=== PATIENT | female | born 1930 | race Caucasian/White ===

== ENCOUNTER 2017-10-07 11:58 | Inpatient (IN) | payer MEDICARE, OTHER ==
[~2017-10-07] VITALS: Ht 152.4 cm; Wt 65.5 kg
[~2017-10-07 11:58] MED LIST: AMLO10TA2 PO; CARV12.52 PO; DABI150C PO; HYDR25TA9 PO; LISI-334 PO; POTA10TA12 PO
[2017-10-07 13:24] LABS: BASO # 0.1 x10^3/uL (0.0-0.2); BASO % 1 % (0-3); EOS # 0.2 x10^3/uL (0.0-0.7); EOS % 1 % (0-3); HEMATOCRIT 44.3 % (36.0-47.0); HEMOGLOBIN 14.5 g/dL (12.0-15.5); LYMPH # 1.7 x10^3/uL (1.0-4.8); LYMPH % 13 % (24-48); MEAN CORPUSCULAR HEMOGLOBIN 31 pg (25-35); MEAN CORPUSCULAR HGB CONC 33 g/dL (31-37); MEAN CORPUSCULAR VOLUME 94 fL (79-100); MONO # 1.1 x10^3/uL (0.0-1.1); MONO % 9 % (0-9); NEUT # 9.3 x10^3uL (1.8-7.7); NEUT % 76 % (31-73); PLATELET COUNT 326 x10^3/uL (140-400); RED BLOOD COUNT 4.73 x10^6/uL (3.50-5.40); RED CELL DISTRIBUTION WIDTH 13.4 % (11.5-14.5); WHITE BLOOD COUNT 12.3 x10^3/uL (4.0-11.0)
[2017-10-07 13:26] LABS: ALBUMIN 3.4 g/dL (3.4-5.0); ALBUMIN/GLOBULIN RATIO 0.8 (1.0-1.7); CREATININE 2.4 mg/dL (0.6-1.0); GFR 19.2; TOTAL BILIRUBIN 0.5 mg/dL (0.2-1.0); TOTAL PROTEIN 7.7 g/dL (6.4-8.2)
[2017-10-07 13:30] LABS: POTASSIUM 7.5 mmol/L (3.5-5.1)
[2017-10-07] MEDS ORDERED: INSULIN REGULAR 100 UNIT/ML 3ML VIAL. IV ONE (13:45)
[2017-10-07] MEDS ORDERED: ALBUTEROL SULFATE 2.5 MG/3 ML NEBU. CONT NEB ONE (13:45)
[2017-10-07] MEDS ORDERED: CALCIUM GLUCONATE 1,000 MG/10 ML VIAL. IVP ONE ×2 (13:45→22:30)
[2017-10-07] MEDS ORDERED: DEXTROSE 50% 25 GM / 50ML DISP.SYRIN. IV ONE (13:45)
[2017-10-07] MEDS ORDERED: IV NORMAL SALINE 1000ML BAG 1,000 ML IV ONE (14:00)
[2017-10-07] MEDS ORDERED: IV NORMAL SALINE 1000ML BAG 1,000 ML IV SCH (14:10)
[2017-10-07] MEDS ORDERED: SODIUM BICARB ADULT 8.4% 50 MEQ/50 ML DISP.SYRIN. IV ONE (14:15)
[2017-10-07] MEDS ORDERED: ONDANSETRON PF 4 MG/2 ML VIAL. ONE (14:23)
[2017-10-07] MEDS ORDERED: ONDANSETRON PF 4 MG/2 ML VIAL. IV ONE (14:30)
--- NOTE | 2017-10-07 14:52 | EKG ---
[facility] [address] [place] [address] Test Date: 2017-10-07 Test Time: 13:41:34 Pat Name: MIKY BELTRAN Department: Room: 248 1 Gender: F Equipment Detailer: : 1930 Requested By: LATRICE SARAVIA Order Number: [id number] Reading MD: Mack Martinez MD Measurements Intervals Gage Rate: 90 P: CA: QRS: -25 QRSD: 94 T: 48 QT: 340 QTc: 419 Interpretive Statements ATRIAL FIBRILLATION NON-SPECIFIC ST/T CHANGES Electronically Signed On 10-07-2017 16:56:48 CDT by Mack Martinez MD
--- NOTE | 2017-10-07 15:47 | PHYS DOC ---
Past Medical History Past Medical History: A-Fib, Anxiety, Hypertension, Stroke, UTI Past Surgical History: , Hysterectomy Additional Past Surgical Histo: COLOSTOMY, COLON RESECTION. Alcohol Use: Rarely Drug Use: None Adult General Chief Complaint Chief Complaint: OTHER COMPLAINTS HPI HPI Patient is a 87 year old [f__sex] who presents with [] Review of Systems Review of Systems Constitutional: Denies fever or chills [] Eyes: Denies change in visual acuity, redness, or eye pain [] HENT: Denies nasal congestion or sore throat [] Respiratory: Denies cough or shortness of breath [] Cardiovascular: No additional information not addressed in HPI [] GI: Denies abdominal pain, nausea, vomiting, bloody stools or diarrhea [] : Denies dysuria or hematuria [] Musculoskeletal: Denies back pain or joint pain [] Integument: Denies rash or skin lesions [] Neurologic: Denies headache, focal weakness or sensory changes [] Endocrine: Denies polyuria or polydipsia [] All other systems were reviewed and found to be within normal limits, except as documented in this note. Current Medications Current Medications Current Medications Medications (Trade) Dose Ordered Sig/Heather Start Time Stop Time Status Last Admin Dose Admin Albuterol Sulfate (Ventolin Neb Soln) 10 mg 1X ONCE 10/07/17 13:45 10/07/17 13:47 DC 10/07/17 15:05 10 MG Calcium Gluconate (Calcium Gluconate) 1,000 mg 1X ONCE 10/07/17 13:45 10/07/17 13:47 DC 10/07/17 14:13 1,000 MG Dextrose (Dextrose 50%-Water Syringe) 25 gm 1X ONCE 10/07/17 13:45 10/07/17 13:47 DC 10/07/17 14:19 25 GM Insulin Human Regular (HumuLIN R VIAL) 10 unit 1X ONCE 10/07/17 13:45 10/07/17 13:47 DC 10/07/17 14:25 10 UNIT Sodium Chloride 1,000 ml @ 1,000 mls/hr 1X ONCE 10/07/17 14:00 10/07/17 14:59 DC 10/07/17 14:09 1,000 MLS/HR Allergies Allergies Allergies Coded Allergies Type Severity Reaction Last Updated Verified Penicillins Allergy Severe Hives 09/14/17 Yes acetaminophen Allergy Intermediate 09/14/17 Yes ibuprofen Allergy Intermediate 09/14/17 Yes ampicillin Allergy Mild Diarrhea 09/21/17 Yes azithromycin Allergy Mild Diarrhea 09/21/17 Yes cetirizine Allergy Mild RASH 10/07/17 Yes I S O L A T I O N *CONTACT* Allergy Unknown 09/14/17 Yes budesonide Adverse Reaction Severe 09/21/17 Yes dabigatran etexilate Adverse Reaction Severe 09/20/17 Yes Tetracyclines Adverse Reaction Intermediate Nausea and Vomiting 10/07/17 Yes albuterol Adverse Reaction Intermediate Nausea and Vomiting 10/07/17 Yes codeine Adverse Reaction Intermediate 09/19/17 Yes diphenhydramine Adverse Reaction Intermediate URINARY RETENTION 09/21/17 Yes erythromycin base Adverse Reaction Intermediate 10/07/17 Yes tetracycline Adverse Reaction Intermediate Diarrhea 09/20/17 Yes Physical Exam Physical Exam Constitutional: Well developed, well nourished, no acute distress, non-toxic appearance. [] HENT: Normocephalic, atraumatic, bilateral external ears normal, oropharynx moist, no oral exudates, nose normal. [] Eyes: PERRLA, EOMI, conjunctiva normal, no discharge. [] Neck: Normal range of motion, no tenderness, supple, no stridor. [] Cardiovascular:Heart rate regular rhythm, no murmur [] Lungs & Thorax: Bilateral breath sounds clear to auscultation [] Abdomen: Bowel sounds normal, soft, no tenderness, no masses, no pulsatile masses. [] Skin: Warm, dry, no erythema, no rash. [] Back: No tenderness, no CVA tenderness. [] Extremities: No tenderness, no cyanosis, no clubbing, ROM intact, no edema. [] Neurologic: Alert and oriented X 3, normal motor function, normal sensory function, no focal deficits noted. [] Psychologic: Affect normal, judgement normal, mood normal. [] Current Patient Data Vital Signs Vital Signs Date Time Temp Pulse Resp B/P (MAP) Pulse Ox O2 Delivery O2 Flow Rate FiO2 10/07/17 13:56 84 24 137/91 (106) 97 Room Air 10/07/17 12:06 97.6 97.6 Lab Values Laboratory Tests Test 10/07/17 12:38 White Blood Count 12.3 x10^3/uL (4.0-11.0) H Red Blood Count 4.73 x10^6/uL (3.50-5.40) Hemoglobin 14.5 g/dL (12.0-15.5) Hematocrit 44.3 % (36.0-47.0) Mean Corpuscular Volume 94 fL (79-100) Mean Corpuscular Hemoglobin 31 pg (25-35) Mean Corpuscular Hemoglobin Concent 33 g/dL (31-37) Red Cell Distribution Width 13.4 % (11.5-14.5) Platelet Count 326 x10^3/uL (140-400) Neutrophils (%) (Auto) 76 % (31-73) H Lymphocytes (%) (Auto) 13 % (24-48) L Monocytes (%) (Auto) 9 % (0-9) Eosinophils (%) (Auto) 1 % (0-3) Basophils (%) (Auto) 1 % (0-3) Neutrophils # (Auto) 9.3 x10^3uL (1.8-7.7) H Lymphocytes # (Auto) 1.7 x10^3/uL (1.0-4.8) Monocytes # (Auto) 1.1 x10^3/uL (0.0-1.1) Eosinophils # (Auto) 0.2 x10^3/uL (0.0-0.7) Basophils # (Auto) 0.1 x10^3/uL (0.0-0.2) Sodium Level 129 mmol/L (136-145) L Potassium Level 7.5 mmol/L (3.5-5.1) *H Chloride Level 98 mmol/L (98-107) Carbon Dioxide Level 27 mmol/L (21-32) Anion Gap 4 (6-14) L Blood Urea Nitrogen 31 mg/dL (7-20) H Creatinine 2.4 mg/dL (0.6-1.0) H Estimated GFR (Cockcroft-Gault) 19.2 BUN/Creatinine Ratio 13 (6-20) Glucose Level 132 mg/dL (70-99) H Calcium Level 10.0 mg/dL (8.5-10.1) Total Bilirubin 0.5 mg/dL (0.2-1.0) Aspartate Amino Transferase (AST) 25 U/L (15-37) Alanine Aminotransferase (ALT) 26 U/L (14-59) Alkaline Phosphatase 102 U/L (46-116) Total Protein 7.7 g/dL (6.4-8.2) Albumin 3.4 g/dL (3.4-5.0) Albumin/Globulin Ratio 0.8 (1.0-1.7) L Laboratory Tests 10/07/17 12:38 Laboratory Tests 10/07/17 12:38 EKG EKG 1348- atrial fibrilation, no STEMI read by Dr. Alberts[] Radiology/Procedures Radiology/Procedures [] Course & Med Decision Making Course & Med Decision Making Pertinent Labs and Imaging studies reviewed. (See chart for details) [] Dragon Disclaimer Dragon Disclaimer This electronic medical record was generated, in whole or in part, using a voice recognition dictation system. Departure Departure Impression: Primary Impression: Hyperkalemia Additional Impressions: Stoma dermatitis Surgical wound dehiscence Disposition: ADMITTED INPATIENT Admitting Physician: Jb Evans Condition: STABLE Referrals: SHABNAM ORLANDO MD (PCP) Problem Qualifiers Additional Impressions: Surgical wound dehiscence Encounter type: initial encounter Qualified Codes: T81.31XA - Disruption of external operation (surgical) wound, not elsewhere classified, initial encounter LATRICE SARAVIA [employer] Oct 07, 2017 15:47
[2017-10-07 19:19] VITALS: BP 130/66
[2017-10-07 21:33] LABS: BASO # 0.1 x10^3/uL (0.0-0.2); BASO % 1 % (0-3); EOS # 0.2 x10^3/uL (0.0-0.7); EOS % 1 % (0-3); HEMATOCRIT 39.6 % (36.0-47.0); HEMOGLOBIN 13.2 g/dL (12.0-15.5); LYMPH # 1.4 x10^3/uL (1.0-4.8); LYMPH % 12 % (24-48); MEAN CORPUSCULAR HEMOGLOBIN 31 pg (25-35); MEAN CORPUSCULAR HGB CONC 33 g/dL (31-37); MEAN CORPUSCULAR VOLUME 92 fL (79-100); MONO # 1.3 x10^3/uL (0.0-1.1); MONO % 11 % (0-9); NEUT # 8.5 x10^3uL (1.8-7.7); NEUT % 75 % (31-73); PLATELET COUNT 269 x10^3/uL (140-400); RED BLOOD COUNT 4.32 x10^6/uL (3.50-5.40); RED CELL DISTRIBUTION WIDTH 13.5 % (11.5-14.5); WHITE BLOOD COUNT 11.3 x10^3/uL (4.0-11.0)
[2017-10-07 21:48] LABS: ALBUMIN 2.8 g/dL (3.4-5.0); ALBUMIN/GLOBULIN RATIO 0.8 (1.0-1.7); CREATININE 2.1 mg/dL (0.6-1.0); GFR 22.4; TOTAL BILIRUBIN 0.5 mg/dL (0.2-1.0); TOTAL PROTEIN 6.4 g/dL (6.4-8.2)
[2017-10-07 21:54] LABS: POTASSIUM 6.6 mmol/L (3.5-5.1)
[2017-10-07 22:31] VITALS: BP 125/47
[2017-10-07] MEDS: SODIUM BICARBONATE VIAL 100 MEQ in IV DEXTROSE 5% 1,000 ML IV SCH (22:56)
[2017-10-08 03:02] VITALS: BP 110/50
[2017-10-08] MEDS: fentaNYL PF VIAL 100 MCG/2 ML VIAL IV PRN (03:53)
[2017-10-08 07:00] VITALS: BP 92/69
[2017-10-08 07:13] LABS: BASO # 0.1 x10^3/uL (0.0-0.2); BASO % 1 % (0-3); EOS # 0.3 x10^3/uL (0.0-0.7); EOS % 3 % (0-3); HEMATOCRIT 37.3 % (36.0-47.0); HEMOGLOBIN 12.5 g/dL (12.0-15.5); LYMPH # 1.4 x10^3/uL (1.0-4.8); LYMPH % 16 % (24-48); MEAN CORPUSCULAR HEMOGLOBIN 31 pg (25-35); MEAN CORPUSCULAR HGB CONC 34 g/dL (31-37); MEAN CORPUSCULAR VOLUME 92 fL (79-100); MONO # 0.9 x10^3/uL (0.0-1.1); MONO % 11 % (0-9); NEUT # 5.8 x10^3uL (1.8-7.7); NEUT % 69 % (31-73); PLATELET COUNT 230 x10^3/uL (140-400); RED BLOOD COUNT 4.05 x10^6/uL (3.50-5.40); RED CELL DISTRIBUTION WIDTH 13.3 % (11.5-14.5); WHITE BLOOD COUNT 8.5 x10^3/uL (4.0-11.0)
[2017-10-08 07:30] LABS: ALBUMIN 2.5 g/dL (3.4-5.0); ALBUMIN/GLOBULIN RATIO 0.8 (1.0-1.7); CREATININE 2.2 mg/dL (0.6-1.0); GFR 21.2; POTASSIUM 5.9 mmol/L (3.5-5.1); TOTAL BILIRUBIN 0.5 mg/dL (0.2-1.0); TOTAL PROTEIN 5.8 g/dL (6.4-8.2)
--- NOTE | 2017-10-08 08:28 | PDOC2 ---
TIANAERENDIRA Natanael [employer] 10/08/17 0828: CONSULT Date of Consult Date of Consult DATE: 10/08/17 TIME: 08:23 Reason for Consult Reason for Consult: wound Referring Physician Referring Physician: ER Identification/Chief Complaint Chief Complaint ostomy issues Source Source: Chart review History of Present Illness Reason for Visit: Having trouble with ostomy seal and skin reaction Nursing concerned for wound dehiscence to incision Underwent subtotal colectomy with end ileostomy, meckels diverticulectomy on 09/[address] Neal Past Medical History Cardiovascular: AFIB, HTN, Hyperlipidemia CENTRAL NERVOUS SYSTEM: CVA Musculoskeletal: Osteoarthritis Past Surgical History Past Surgical History: Cholecystectomy, Cataract Removal, , Hysterectomy, Other Family History Family History: Heart Disease, Stroke Social History No ALCOHOL: none Drugs: None Lives: with Family Current Problem List Problem List Problems Medical Problems: (1) Hyperkalemia Status: Acute (2) Stoma dermatitis Status: Acute (3) Surgical wound dehiscence Status: Acute Current Medications Current Medications Current Medications Calcium Gluconate (Calcium Gluconate) 1,000 mg 1X ONCE IVP Last administered on 10/07/17at 14:13; Start 10/07/17 at 13:45; Stop 10/07/17 at 13:47; Status DC Insulin Human Regular (HumuLIN R VIAL) 10 unit 1X ONCE IV Last administered on 10/07/17at 14:25; Start 10/07/17 at 13:45; Stop 10/07/17 at 13:47; Status DC Dextrose (Dextrose 50%-Water Syringe) 25 gm 1X ONCE IV Last administered on at 14:19; Start 10/07/17 at 13:45; Stop 10/07/17 at 13:47; Status DC Albuterol Sulfate (Ventolin Neb Soln) 10 mg 1X ONCE CONT NEB Last administered on 10/07/17at 15:05; Start 10/07/17 at 13:45; Stop 10/07/17 at 13:47 ; Status DC Sodium Chloride 1,000 ml @ 1,000 mls/hr 1X ONCE IV Last administered on at 14:09; Start 10/07/17 at 14:00; Stop 10/07/17 at 14:59; Status DC Sodium Bicarbonate (Sodium Bicarb Adult 8.4% Syr) 50 meq 1X ONCE IV Last administered on 10/07/17at 14:32; Start 10/07/17 at 14:15; Stop 10/07/17 at 14:16 ; Status DC Sodium Chloride 1,000 ml @ 75 mls/hr [id number] IV Last administered on at 18:28; Start 10/07/17 at 14:10; Stop 10/07/17 at 22:52; Status DC Ondansetron HCl (Zofran) 4 mg STK-MED ONCE .ROUTE ; Start 10/07/17 at 14:23; Stop 10/07/17 at 14:24; Status DC Ondansetron HCl (Zofran) 4 mg 1X ONCE IV Last administered on 10/07/17at 14:27 ; Start 10/07/17 at 14:30; Stop 10/07/17 at 14:31; Status DC Sodium Bicarbonate 100 meq/Dextrose 1,100 ml @ 75 mls/hr [id number] IV Last administered on 10/07/17at 22:56; Start 10/07/17 at 22:30 Calcium Gluconate (Calcium Gluconate) 1,000 mg 1X ONCE IVP Last administered on 10/07/17at 22:56; Start 10/07/17 at 22:30; Stop 10/07/17 at 22:31; Status DC Fentanyl Citrate (Fentanyl 2ml Vial) 50 mcg PRN Q3HRS PRN IV PAIN Last administered on 10/08/17at 03:53; Start 10/08/17 at 03:45 Active Scripts Active Reported Potassium Chloride 10 Meq Tab.sr.24h 10 Meq PO DAILY Lisinopril 20 Mg Tablet 20 Mg PO BIDBFRMEAL PRN Hydrochlorothiazide Tablet (Hydrochlorothiazide) 25 Mg Tablet 25 Mg PO DAILY Carvedilol 12.5 Mg Tablet 12.5 Mg PO BID Amlodipine Besylate 10 Mg Tablet 10 Mg PO DAILY Allergies Allergies: Coded Allergies: Penicillins (Verified Allergy, Severe, Hives, 09/14/17) acetaminophen (Verified Allergy, Intermediate, 09/14/17) WHEN PT TOOK MED, HAD A FEELING THAT SOMETHING WAS ON SKIN BUT FEELING SUBSIDED AFTER A SHORT PERIOD OF TIME. PT THEN SEEMED TO TOLERATE MED OK. ibuprofen (Verified Allergy, Intermediate, 09/14/17) ampicillin (Verified Allergy, Mild, Diarrhea, 09/21/17) azithromycin (Verified Allergy, Mild, Diarrhea, 09/21/17) cetirizine (Verified Allergy, Mild, RASH, 10/07/17) I S O L A T I O N *CONTACT* (Verified Allergy, Unknown, 09/14/17) mrsa budesonide (Verified Adverse Reaction, Severe, 09/21/17) cannot urinate for days dabigatran etexilate (Verified Adverse Reaction, Severe, 09/20/17) severe bleeding requiring transfusion Tetracyclines (Verified Adverse Reaction, Intermediate, Nausea and Vomiting, 10/07/17) albuterol (Verified Adverse Reaction, Intermediate, Nausea and Vomiting, ) codeine (Verified Adverse Reaction, Intermediate, 09/19/17) GI issues, nausea and vomiting diphenhydramine (Verified Adverse Reaction, Intermediate, URINARY RETENTION, 09/21/17) urinary retention erythromycin base (Verified Adverse Reaction, Intermediate, 10/07/17) pt states, "can't pee" tetracycline (Verified Adverse Reaction, Intermediate, Diarrhea, 09/20/17) ROS General: No: Chills, Other (fevers) PSYCHOLOGICAL ROS: No: Anxiety, Depression Hematological and Lymphatic: No: Bleeding Problems, Blood Clots Gastrointestinal: Yes Abdominal Pain; No Nausea Skin: Yes Other (see hpi) Physical Exam General: Cooperative, No acute distress HEENT: PERRLA, Mucous membr. moist/pink Lungs: Clear to auscultation, Normal air movement Heart: Regular rate, Normal S1, Normal S2 Abdomen: Soft, Other (skin with erythema to ostomy area, currently good seal, stoma pink, incision healing(open area to bottom of incision is from old annette drain)) Extremities: No cyanosis, Normal pulses MUSCULOSKELETAL: No deformity, No swelling Vitals VITALS Vital Signs Date Time Temp Pulse Resp B/P (MAP) Pulse Ox O2 Delivery O2 Flow Rate FiO2 10/08/17 04:20 16 Room Air 10/08/17 03:02 98.2 76 110/50 (70) 95 98.2 Labs Labs Laboratory Tests Test 10/07/17 12:38 10/07/17 21:15 10/08/17 06:50 White Blood Count 12.3 x10^3/uL (4.0-11.0) 11.3 x10^3/uL (4.0-11.0) 8.5 x10^3/uL (4.0-11.0) Red Blood Count 4.73 x10^6/uL (3.50-5.40) 4.32 x10^6/uL (3.50-5.40) 4.05 x10^6/uL (3.50-5.40) Hemoglobin 14.5 g/dL (12.0-15.5) 13.2 g/dL (12.0-15.5) 12.5 g/dL (12.0-15.5) Hematocrit 44.3 % (36.0-47.0) 39.6 % (36.0-47.0) 37.3 % (36.0-47.0) Mean Corpuscular Volume 94 fL (79-100) 92 fL (79-100) 92 fL (79-100) Mean Corpuscular Hemoglobin 31 pg (25-35) 31 pg (25-35) 31 pg (25-35) Mean Corpuscular Hemoglobin Concent 33 g/dL (31-37) 33 g/dL (31-37) 34 g/dL (31-37) Red Cell Distribution Width 13.4 % (11.5-14.5) 13.5 % (11.5-14.5) 13.3 % (11.5-14.5) Platelet Count 326 x10^3/uL (140-400) 269 x10^3/uL (140-400) 230 x10^3/uL (140-400) Neutrophils (%) (Auto) 76 % (31-73) 75 % (31-73) 69 % (31-73) Lymphocytes (%) (Auto) 13 % (24-48) 12 % (24-48) 16 % (24-48) Monocytes (%) (Auto) 9 % (0-9) 11 % (0-9) 11 % (0-9) Eosinophils (%) (Auto) 1 % (0-3) 1 % (0-3) 3 % (0-3) Basophils (%) (Auto) 1 % (0-3) 1 % (0-3) 1 % (0-3) Neutrophils # (Auto) 9.3 x10^3uL (1.8-7.7) 8.5 x10^3uL (1.8-7.7) 5.8 x10^3uL (1.8-7.7) Lymphocytes # (Auto) 1.7 x10^3/uL (1.0-4.8) 1.4 x10^3/uL (1.0-4.8) 1.4 x10^3/uL (1.0-4.8) Monocytes # (Auto) 1.1 x10^3/uL (0.0-1.1) 1.3 x10^3/uL (0.0-1.1) 0.9 x10^3/uL (0.0-1.1) Eosinophils # (Auto) 0.2 x10^3/uL (0.0-0.7) 0.2 x10^3/uL (0.0-0.7) 0.3 x10^3/uL (0.0-0.7) Basophils # (Auto) 0.1 x10^3/uL (0.0-0.2) 0.1 x10^3/uL (0.0-0.2) 0.1 x10^3/uL (0.0-0.2) Sodium Level 129 mmol/L (136-145) 133 mmol/L (136-145) 132 mmol/L (136-145) Potassium Level 7.5 mmol/L (3.5-5.1) 6.6 mmol/L (3.5-5.1) 5.9 mmol/L (3.5-5.1) Chloride Level 98 mmol/L (98-107) 101 mmol/L (98-107) 97 mmol/L (98-107) Carbon Dioxide Level 27 mmol/L (21-32) 26 mmol/L (21-32) 31 mmol/L (21-32) Anion Gap 4 (6-14) 6 (6-14) 4 (6-14) Blood Urea Nitrogen 31 mg/dL (7-20) 31 mg/dL (7-20) 32 mg/dL (7-20) Creatinine 2.4 mg/dL (0.6-1.0) 2.1 mg/dL (0.6-1.0) 2.2 mg/dL (0.6-1.0) Estimated GFR (Cockcroft-Gault) 19.2 22.4 21.2 BUN/Creatinine Ratio 13 (6-20) 15 (6-20) 15 (6-20) Glucose Level 132 mg/dL (70-99) 102 mg/dL (70-99) 101 mg/dL (70-99) Calcium Level 10.0 mg/dL (8.5-10.1) 9.0 mg/dL (8.5-10.1) 9.0 mg/dL (8.5-10.1) Total Bilirubin 0.5 mg/dL (0.2-1.0) 0.5 mg/dL (0.2-1.0) 0.5 mg/dL (0.2-1.0) Aspartate Amino Transf (AST/SGOT) 25 U/L (15-37) 22 U/L (15-37) 18 U/L (15-37) Alanine Aminotransferase (ALT/SGPT) 26 U/L (14-59) 23 U/L (14-59) 21 U/L (14-59) Alkaline Phosphatase 102 U/L (46-116) 93 U/L (46-116) 81 U/L (46-116) Total Protein 7.7 g/dL (6.4-8.2) 6.4 g/dL (6.4-8.2) 5.8 g/dL (6.4-8.2) Albumin 3.4 g/dL (3.4-5.0) 2.8 g/dL (3.4-5.0) 2.5 g/dL (3.4-5.0) Albumin/Globulin Ratio 0.8 (1.0-1.7) 0.8 (1.0-1.7) 0.8 (1.0-1.7) Laboratory Tests Test 10/07/17 12:38 10/07/17 21:15 10/08/17 06:50 White Blood Count 12.3 x10^3/uL (4.0-11.0) 11.3 x10^3/uL (4.0-11.0) 8.5 x10^3/uL (4.0-11.0) Red Blood Count 4.73 x10^6/uL (3.50-5.40) 4.32 x10^6/uL (3.50-5.40) 4.05 x10^6/uL (3.50-5.40) Hemoglobin 14.5 g/dL (12.0-15.5) 13.2 g/dL (12.0-15.5) 12.5 g/dL (12.0-15.5) Hematocrit 44.3 % (36.0-47.0) 39.6 % (36.0-47.0) 37.3 % (36.0-47.0) Mean Corpuscular Volume 94 fL (79-100) 92 fL (79-100) 92 fL (79-100) Mean Corpuscular Hemoglobin 31 pg (25-35) 31 pg (25-35) 31 pg (25-35) Mean Corpuscular Hemoglobin Concent 33 g/dL (31-37) 33 g/dL (31-37) 34 g/dL (31-37) Red Cell Distribution Width 13.4 % (11.5-14.5) 13.5 % (11.5-14.5) 13.3 % (11.5-14.5) Platelet Count 326 x10^3/uL (140-400) 269 x10^3/uL (140-400) 230 x10^3/uL (140-400) Neutrophils (%) (Auto) 76 % (31-73) 75 % (31-73) 69 % (31-73) Lymphocytes (%) (Auto) 13 % (24-48) 12 % (24-48) 16 % (24-48) Monocytes (%) (Auto) 9 % (0-9) 11 % (0-9) 11 % (0-9) Eosinophils (%) (Auto) 1 % (0-3) 1 % (0-3) 3 % (0-3) Basophils (%) (Auto) 1 % (0-3) 1 % (0-3) 1 % (0-3) Neutrophils # (Auto) 9.3 x10^3uL (1.8-7.7) 8.5 x10^3uL (1.8-7.7) 5.8 x10^3uL (1.8-7.7) Lymphocytes # (Auto) 1.7 x10^3/uL (1.0-4.8) 1.4 x10^3/uL (1.0-4.8) 1.4 x10^3/uL (1.0-4.8) Monocytes # (Auto) 1.1 x10^3/uL (0.0-1.1) 1.3 x10^3/uL (0.0-1.1) 0.9 x10^3/uL (0.0-1.1) Eosinophils # (Auto) 0.2 x10^3/uL (0.0-0.7) 0.2 x10^3/uL (0.0-0.7) 0.3 x10^3/uL (0.0-0.7) Basophils # (Auto) 0.1 x10^3/uL (0.0-0.2) 0.1 x10^3/uL (0.0-0.2) 0.1 x10^3/uL (0.0-0.2) Sodium Level 129 mmol/L (136-145) 133 mmol/L (136-145) 132 mmol/L (136-145) Potassium Level 7.5 mmol/L (3.5-5.1) 6.6 mmol/L (3.5-5.1) 5.9 mmol/L (3.5-5.1) Chloride Level 98 mmol/L (98-107) 101 mmol/L (98-107) 97 mmol/L (98-107) Carbon Dioxide Level 27 mmol/L (21-32) 26 mmol/L (21-32) 31 mmol/L (21-32) Anion Gap 4 (6-14) 6 (6-14) 4 (6-14) Blood Urea Nitrogen 31 mg/dL (7-20) 31 mg/dL (7-20) 32 mg/dL (7-20) Creatinine 2.4 mg/dL (0.6-1.0) 2.1 mg/dL (0.6-1.0) 2.2 mg/dL (0.6-1.0) Estimated GFR (Cockcroft-Gault) 19.2 22.4 21.2 BUN/Creatinine Ratio 13 (6-20) 15 (6-20) 15 (6-20) Glucose Level 132 mg/dL (70-99) 102 mg/dL (70-99) 101 mg/dL (70-99) Calcium Level 10.0 mg/dL (8.5-10.1) 9.0 mg/dL (8.5-10.1) 9.0 mg/dL (8.5-10.1) Total Bilirubin 0.5 mg/dL (0.2-1.0) 0.5 mg/dL (0.2-1.0) 0.5 mg/dL (0.2-1.0) Aspartate Amino Transf (AST/SGOT) 25 U/L (15-37) 22 U/L (15-37) 18 U/L (15-37) Alanine Aminotransferase (ALT/SGPT) 26 U/L (14-59) 23 U/L (14-59) 21 U/L (14-59) Alkaline Phosphatase 102 U/L (46-116) 93 U/L (46-116) 81 U/L (46-116) Total Protein 7.7 g/dL (6.4-8.2) 6.4 g/dL (6.4-8.2) 5.8 g/dL (6.4-8.2) Albumin 3.4 g/dL (3.4-5.0) 2.8 g/dL (3.4-5.0) 2.5 g/dL (3.4-5.0) Albumin/Globulin Ratio 0.8 (1.0-1.7) 0.8 (1.0-1.7) 0.8 (1.0-1.7) Assessment/Plan Assessment/Plan needs good skin care ostomy care do not need to pack old annette site, just dry dressing, will close on own DENIA QIU MD 10/08/17 1635: CONSULT Assessment/Plan Assessment/Plan Patient seen and examined. Resting comfortably in bed. Stoma site with skin excoriation. Wound care. Agree with Tiana's assessment and plan. ERENDIRA FLETCHER APRN Oct 08, 2017 08:28 DENIA QIU MD Oct 08, 2017 16:35
[2017-10-08] MEDS ORDERED: IV NORMAL SALINE 1000ML BAG 1,000 ML IV ONE (10:00)
[2017-10-08] MEDS ORDERED: IV NORMAL SALINE 500ML BAG 500 ML IV ONE (10:00)
[2017-10-08] MEDS: CARVEDILOL 12.5 MG TABLET. PO SCH ×2 (10:47→17:00)
[2017-10-08] MEDS: amLODIPine BESYLATE 10 MG TABLET PO SCH (10:47)
[2017-10-08] MEDS: SODIUM BICARBONATE VIAL 100 MEQ in IV DEXTROSE 5% 1,000 ML IV SCH (10:54)
[2017-10-08] MEDS: LACTULOSE 20 GM/30 ML SOLUTION. PO SCH ×2 (10:59→21:00)
[2017-10-08 11:00] VITALS: BP 118/66
[2017-10-08] MEDS ORDERED: SODIUM POLYSTYRENE SULFONATE 15 GM/60 ML ORAL.SUSP. PO SCH (11:00)
[2017-10-08 15:37] VITALS: BP 104/56
--- NOTE | 2017-10-08 17:26 | HP ---
ADMIT DATE: HISTORY OF PRESENT ILLNESS: The patient is an 87-year-old female patient, resident at [facility], who was noted to have markedly excoriated skin around her stoma bag and also possible dehiscence of the skin around her colostomy, and therefore the patient was transferred to [facility] Emergency Room for further evaluation and to consult the surgical team. By the time she was seen there, she was found to have hyponatremia, hyperkalemia with acute kidney injury. She was treated with 10 mL of 10% calcium gluconate as well as insulin and glucose as well as nebulized treatment, was given a bolus of IV fluid and continued on IV normal saline, and was admitted for treatment of her acute kidney injury and hyperkalemia and consult the surgical team. The patient herself was complaining of severe pain around her colostomy because of severe excoriation of the skin. PAST MEDICAL HISTORY: Significant for hypertension, atrial fibrillation. She is also known to have osteoarthritis as well as hyperlipidemia and the right middle cerebral artery territory infarct with left side hemiplegia about 15 years ago. She is mostly in her power chair, although she can use a walker to transfer. PAST SURGICAL HISTORY: Significant for total abdominal hysterectomy, bilateral salpingo-oophorectomy, cholecystectomy, bilateral cataract extraction, colonoscopy, esophagogastroduodenoscopy and she has also had section and most recently she underwent rigid proctoscopy, subtotal colectomy with end ileostomy and Meckel diverticulectomy. FAMILY HISTORY: She has 3 brothers and 5 sisters, older brother of myocardial infarction and CVA and 4 sisters all of them with complication of diabetes, coronary artery disease and cerebrovascular accident. She has 1 older sister that is still alive at age of 90 and one younger brother at age of 77 still alive. Her mother at age of 84 because of pneumonia and CVA. Her father committed suicide at the age of 52. SOCIAL HISTORY: She is , lives with her son. One of her sons of diabetes and cerebral aneurysm. She never smoked, does not drink alcohol. She worked for 25 years. ALLERGIES: SHE IS ALLERGIC TO PENICILLIN, ACETAMINOPHEN, ALBUTEROL, AMPICILLIN, AZITHROMYCIN, CETIRIZINE, CODEINE, AND DIPHENHYDRAMINE. MEDICATIONS: She is currently on following medications: She is on carvedilol 12.5 mg twice a day, amlodipine 10 mg once a day, lisinopril 20 mg once a day, potassium chloride 20 mEq 3 times a day, hydrochlorothiazide 25 mg once a day. REVIEW OF SYSTEMS: As per history of present illness. PHYSICAL EXAMINATION: GENERAL: On arrival to the Emergency Room, the patient looked pale, but no jaundice, cyanosis, or thyromegaly. No jugular venous distension. No lower limb edema. VITAL SIGNS: Her heart rate was 97, blood pressure 179/72, temperature was 97.6, respiratory rate was 18 and oxygen saturation was 97%. HEAD, EYES, EARS, NOSE AND THROAT: Normocephalic, atraumatic. NECK: Supple. HEART: Showed normal first and second heart sounds with no gallop, rub or murmur. CHEST: Clear to auscultation. No crepitation or rhonchi. ABDOMEN: Distended, soft with a midline surgical incision healing nicely with no redness, tenderness or discharge. There is excoriated skin around the stoma bag and there is also what seems to be dehiscence of the wound around her stoma. There is no tenderness. No guarding or rigidity. No organomegaly. All hernial orifices intact. Bowel sounds normal. NEUROLOGIC: She is awake, alert, responding appropriately. All cranial nerves intact. She moves upper extremities to much good extent than lower extremities, mostly bed bound and chair bound. LABORATORY DATA: On admission showed a white cell count of 12,300, hemoglobin 14.5, hematocrit 44, MCV 94 and platelet count of 326,000 with normal manual differential. Her chemistry showed a serum sodium of 129, potassium 7.5, chloride 98, bicarbonate 27, anion gap of 4, BUN 31, creatinine 2.4, estimated GFR was 19 mL per minute, her glucose 132, calcium was 10. Total bilirubin, AST, ALT, alkaline phosphatase were normal. Total protein was 7.7, albumin was 3.4. ASSESSMENT AND PLAN: The patient was admitted with a diagnosis of acute kidney injury, hyperkalemia, hyponatremia and questionable dehiscence of the stoma. She was given a bolus of normal saline, was treated with insulin and glucose, calcium gluconate as well as nebulized treatment. Initially I was not sure whether we can feed her, so I decided to keep her n.p.o., started her on a bicarbonate drip by putting 2 amps of bicarbonate in 1000 mL of dextrose to continue at 75 mL per hour and to repeat her lab works again at 6:00 to make sure that the potassium and kidney function are improving. CONNIE TOVAR MD DR: SOUTH/cat JOB#: [id number] / [id number]
[2017-10-08 19:05] VITALS: BP 111/64
[2017-10-08 19:52] LABS: CALCIUM 8.5 mg/dL (8.5-10.1); CREATININE 1.8 mg/dL (0.6-1.0); GFR 26.7; POTASSIUM 4.7 mmol/L (3.5-5.1)
[2017-10-08] MEDS: IV NORMAL SALINE 1000ML BAG 1,000 ML IV SCH (20:22)
[2017-10-08] MEDS ORDERED: MAGNESIUM SULFATE 2GM 50 ML IV ONE (20:30)
--- NOTE | 2017-10-08 21:01 | PN ---
DATE: 10/08/2017 SUBJECTIVE: She did complain of severe pain around her ostomy as the nursing staff is having trouble with ostomy seal and skin irritation, and there is also concern about the wound dehiscence to the incision. 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 She actually was seen by the surgical nurse practitioner and basically the area that we were concerned about dehiscence is actually the old Sangeeta site that needs just dry dressing and will close on its own. We did consult the Wound Care team to assist with good skin care and ostomy care. PHYSICAL EXAMINATION: GENERAL: When I examined her this morning, she looked well and was clearly in no apparent respiratory distress, slightly pale, but no jaundice, cyanosis, or thyromegaly. No jugular venous distension. No lower limb edema. VITAL SIGNS: Her heart rate was 68, blood pressure 143/79, temperature was 97.6, respiratory rate 24 and oxygen saturation was 97%. HEAD, EYES, EARS, NOSE AND THROAT: Showed normocephalic, atraumatic. NECK: Supple. HEART: Showed normal first and second heart sounds with no gallop, rub or murmur. CHEST: Clear to auscultation. No crepitation or rhonchi. ABDOMEN: Distended, soft with a midline surgical incision healing nicely with no redness, tenderness or discharge. She has colostomy in the left lower quadrant. No tenderness. No guarding or rigidity. No organomegaly. All hernial orifices intact. Bowel sounds normal. NEUROLOGIC: She is awake, alert, responding appropriately. All cranial nerves intact. She has left-sided hemiplegia. She is mostly bedbound, chair bound. INS AND OUTS: Her intake was 900, output was 875. LABORATORY DATA: This morning showed a serum sodium of 132, potassium 5.9, chloride 97, bicarbonate 31, anion gap of 4, BUN 32, creatinine 2.2, estimated GFR was 21 mL per minute, her glucose 101, calcium was 9. Total bilirubin, AST, ALT, alkaline phosphatase were normal. Total protein was 5.8, albumin was 2.5. ASSESSMENT: Acute kidney injury, creatinine has risen from 0.6 to 2.4; hyperkalemia, hyponatremia, skin irritation around the stoma area. PLAN: My plan is to advance her diet as tolerated. She was given a bolus of normal saline and started on normal saline at 125 mL per hour. We will treat her with Kayexalate 15 grams and 30 mL lactulose twice today. We will repeat her labs tomorrow and we have consulted the surgical team as well as the Wound Care team to assist with the skin irritation around the stoma bed. CONNIE TOVAR MD DR: SOUTH/cat JOB#: [id number] / [id number]
[2017-10-08 23:12] VITALS: BP 99/47
[2017-10-09] MEDS: fentaNYL PF VIAL 100 MCG/2 ML VIAL IV PRN (03:22)
[2017-10-09 03:37] VITALS: BP 116/83
[2017-10-09 06:15] LABS: ALBUMIN 2.3 g/dL (3.4-5.0); ALBUMIN/GLOBULIN RATIO 0.8 (1.0-1.7); CALCIUM 8.1 mg/dL (8.5-10.1); CREATININE 1.6 mg/dL (0.6-1.0); GFR 30.6; POTASSIUM 4.3 mmol/L (3.5-5.1); TOTAL BILIRUBIN 0.4 mg/dL (0.2-1.0); TOTAL PROTEIN 5.3 g/dL (6.4-8.2)
[2017-10-09 07:50] VITALS: BP 101/42
[2017-10-09] MEDS: CARVEDILOL 12.5 MG TABLET. PO SCH ×2 (08:00→16:38)
[2017-10-09] MEDS: IV NORMAL SALINE 1000ML BAG 1,000 ML IV SCH ×3 (08:15→20:39)
[2017-10-09] MEDS: amLODIPine BESYLATE 10 MG TABLET PO SCH (08:30)
[2017-10-09] MEDS: LACTULOSE 20 GM/30 ML SOLUTION. PO SCH (08:30)
[2017-10-09 10:20] VITALS: BP 135/55
--- NOTE | 2017-10-09 14:45 | PDOC2 ---
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 She reprots that her ostomy output has not increased since her discharge from [facility] after surgery. PMH: PMH: Past Medical History Cardiovascular: AFIB, HTN, Hyperlipidemia CENTRAL NERVOUS SYSTEM: CVA Musculoskeletal: Osteoarthritis Past Surgical History Past Surgical History: Cholecystectomy, Cataract Removal, , Hysterectomy, Other Family History Family History: Heart Disease, Stroke Social History No ALCOHOL: none Drugs: None Lives: with Family Current Problem List Problem List Problems Medical Problems: (1) Hyperkalemia Status: Acute (2) Stoma dermatitis Status: Acute (3) Surgical wound dehiscence Status: Acute Current Medications Current Medications Current Medications Calcium Gluconate (Calcium Gluconate) 1,000 mg 1X ONCE IVP Last administered on 10/07/17at 14:13; Start 10/07/17 at 13:45; Stop 10/07/17 at 13:47; Status DC Insulin Human Regular (HumuLIN R VIAL) 10 unit 1X ONCE IV Last administered on 10/07/17at 14:25; Start 10/07/17 at 13:45; Stop 10/07/17 at 13:47; Status DC Dextrose (Dextrose 50%-Water Syringe) 25 gm 1X ONCE IV Last administered on at 14:19; Start 10/07/17 at 13:45; Stop 10/07/17 at 13:47; Status DC Albuterol Sulfate (Ventolin Neb Soln) 10 mg 1X ONCE CONT NEB Last administered on 10/07/17at 15:05; Start 10/07/17 at 13:45; Stop 10/07/17 at 13:47 ; Status DC Sodium Chloride 1,000 ml @ 1,000 mls/hr 1X ONCE IV Last administered on at 14:09; Start 10/07/17 at 14:00; Stop 10/07/17 at 14:59; Status DC Sodium Bicarbonate (Sodium Bicarb Adult 8.4% Syr) 50 meq 1X ONCE IV Last administered on 10/07/17at 14:32; Start 10/07/17 at 14:15; Stop 10/07/17 at 14:16 ; Status DC Sodium Chloride 1,000 ml @ 75 mls/hr [id number] IV Last administered on at 18:28; Start 10/07/17 at 14:10; Stop 10/07/17 at 22:52; Status DC Ondansetron HCl (Zofran) 4 mg STK-MED ONCE .ROUTE ; Start 10/07/17 at 14:23; Stop 10/07/17 at 14:24; Status DC Ondansetron HCl (Zofran) 4 mg 1X ONCE IV Last administered on 10/07/17at 14:27 ; Start 10/07/17 at 14:30; Stop 10/07/17 at 14:31; Status DC Sodium Bicarbonate 100 meq/Dextrose 1,100 ml @ 75 mls/hr [id number] IV Last administered on 10/07/17at 22:56; Start 10/07/17 at 22:30 Calcium Gluconate (Calcium Gluconate) 1,000 mg 1X ONCE IVP Last administered on 10/07/17at 22:56; Start 10/07/17 at 22:30; Stop 10/07/17 at 22:31; Status DC Fentanyl Citrate (Fentanyl 2ml Vial) 50 mcg PRN Q3HRS PRN IV PAIN Last administered on 10/08/17at 03:53; Start 10/08/17 at 03:45 Active Scripts Active Reported Potassium Chloride 10 Meq Tab.sr.24h 10 Meq PO DAILY Lisinopril 20 Mg Tablet 20 Mg PO BIDBFRMEAL PRN Hydrochlorothiazide Tablet (Hydrochlorothiazide) 25 Mg Tablet 25 Mg PO DAILY Carvedilol 12.5 Mg Tablet 12.5 Mg PO BID Amlodipine Besylate 10 Mg Tablet 10 Mg PO DAILY Allergies Allergies: Coded Allergies: Penicillins (Verified Allergy, Severe, Hives, 09/14/17) acetaminophen (Verified Allergy, Intermediate, 09/14/17) WHEN PT TOOK MED, HAD A FEELING THAT SOMETHING WAS ON SKIN BUT FEELING SUBSIDED AFTER A SHORT PERIOD OF TIME. PT THEN SEEMED TO TOLERATE MED OK. ibuprofen (Verified Allergy, Intermediate, 09/14/17) ampicillin (Verified Allergy, Mild, Diarrhea, 09/21/17) azithromycin (Verified Allergy, Mild, Diarrhea, 09/21/17) cetirizine (Verified Allergy, Mild, RASH, 10/07/17) I S O L A T I O N *CONTACT* (Verified Allergy, Unknown, 09/14/17) mrsa budesonide (Verified Adverse Reaction, Severe, 09/21/17) cannot urinate for days dabigatran etexilate (Verified Adverse Reaction, Severe, 09/20/17) severe bleeding requiring transfusion Tetracyclines (Verified Adverse Reaction, Intermediate, Nausea and Vomiting, 10/07/17) albuterol (Verified Adverse Reaction, Intermediate, Nausea and Vomiting, ) codeine (Verified Adverse Reaction, Intermediate, 09/19/17) GI issues, nausea and vomiting diphenhydramine (Verified Adverse Reaction, Intermediate, URINARY RETENTION, 09/21/17) urinary retention erythromycin base (Verified Adverse Reaction, Intermediate, 10/07/17) pt states, "can't pee" tetracycline (Verified Adverse Reaction, Intermediate, Diarrhea, 09/20/17) FH: Family History: CVA, DM, Other Social History: Smoke: No ALCOHOL: none Drugs: None ROS: ROS General: No: Chills, Other (fevers) PSYCHOLOGICAL ROS: No: Anxiety, Depression Hematological and Lymphatic: No: Bleeding Problems, Blood Clots Gastrointestinal: Yes Abdominal Pain; No Nausea Skin: Yes Other (see hpi) VItals: Vitals: Vital Signs Date Time Temp Pulse Resp B/P (MAP) Pulse Ox O2 Delivery O2 Flow Rate FiO2 10/09/17 10:20 98.2 81 18 135/55 (81) 98 Room Air 98.2 Labs: Labs: Laboratory Tests Test 10/08/17 19:20 10/09/17 04:30 Sodium Level 135 mmol/L (136-145) 137 mmol/L (136-145) Potassium Level 4.7 mmol/L (3.5-5.1) 4.3 mmol/L (3.5-5.1) Chloride Level 100 mmol/L (98-107) 104 mmol/L (98-107) Carbon Dioxide Level 30 mmol/L (21-32) 27 mmol/L (21-32) Anion Gap 5 (6-14) 6 (6-14) Blood Urea Nitrogen 29 mg/dL (7-20) 27 mg/dL (7-20) Creatinine 1.8 mg/dL (0.6-1.0) 1.6 mg/dL (0.6-1.0) Estimated GFR (Cockcroft-Gault) 26.7 30.6 Glucose Level 92 mg/dL (70-99) 82 mg/dL (70-99) Calcium Level 8.5 mg/dL (8.5-10.1) 8.1 mg/dL (8.5-10.1) Magnesium Level 1.5 mg/dL (1.8-2.4) 2.4 mg/dL (1.8-2.4) BUN/Creatinine Ratio 17 (6-20) Total Bilirubin 0.4 mg/dL (0.2-1.0) Aspartate Amino Transf (AST/SGOT) 18 U/L (15-37) Alanine Aminotransferase (ALT/SGPT) 20 U/L (14-59) Alkaline Phosphatase 76 U/L (46-116) Total Protein 5.3 g/dL (6.4-8.2) Albumin 2.3 g/dL (3.4-5.0) Albumin/Globulin Ratio 0.8 (1.0-1.7) Imaging: Imaging: na PE: Physical Exam General: Cooperative, No acute distress HEENT: PERRLA, Mucous membr. moist/pink Lungs: Clear to auscultation, Normal air movement Heart: Regular rate, Normal S1, Normal S2 Abdomen: Soft, Other (skin with erythema to ostomy area, currently good seal, stoma pink, incision healing(open area to bottom of incision is from old annette drain)) Extremities: No cyanosis, Normal pulses MUSCULOSKELETAL: No deformity, A/P: A/P: A 1) High output ostomy P Check stool studies. May need to collect stool sample for lytes. Consider colestipol HENRIK TORO MD Oct 09, 2017 14:45
[2017-10-09 14:48] VITALS: BP 134/52
[2017-10-09 19:57] VITALS: BP 111/54
[2017-10-09] MEDS ORDERED: APIXABAN 2.5 MG TABLET. PO SCH (21:00)
[2017-10-09 22:38] VITALS: BP 119/50
--- NOTE | 2017-10-09 22:51 | PN ---
DATE: 10/09/2017 SUBJECTIVE: The patient is resting slightly propped up, eating her breakfast comfortably, in no apparent distress. She continued to complain of severe pain around her stoma bag because of skin irritation; however, her kidney function, serum potassium has dramatically improved. Her serum potassium is down to 4.3. Her creatinine is trending down from 2.4 to 1.6 and her magnesium is up to 2.4. She has high output ileostomy as her output of urine was on only 875. PHYSICAL EXAMINATION: GENERAL: When I examined her this morning, she looked well and was clearly in no apparent respiratory distress. No pallor, jaundice, cyanosis or thyromegaly. No jugular venous distension. No lower limb edema. VITAL SIGNS: Her heart rate was 62, blood pressure was 101/42, temperature was 97.9, respiratory rate 12 and oxygen saturation was 96% on room air. HEAD, EYES, EARS, NOSE AND THROAT: Showed normocephalic, atraumatic. NECK: Supple. HEART: Showed normal first and second heart sounds. No gallop, rub or murmur. CHEST: Clear to auscultation. No crepitation or rhonchi. ABDOMEN: Slightly distended with a midline surgical incision healing nicely. She has an ileostomy in the right lower quadrant with irritated skin. No tenderness. No guarding or rigidity. No organomegaly. All hernial orifices intact. Bowel sounds normal. NEUROLOGIC: She is awake, alert, although she was very confused early this morning after she got her fentanyl. All her cranial nerves are intact. She has left side hemiplegia. She is mostly bedbound, chair bound. INS AND OUTS: Her intake over the last 24 hours was 900, output was 875. LABORATORY DATA: As of this morning showed a serum sodium 137, potassium 4.3, chloride 104, bicarbonate 27, anion gap of 6, BUN 27, creatinine was 1.6, estimated GFR was 30 mL per minute, her glucose was 82, calcium was 8.1, magnesium 2.4. Total bilirubin, AST, ALT, alkaline phosphatase were normal. Her total protein was 5.3, albumin was 2.3. Her white cell count was 8500, hemoglobin 12, hematocrit 37, MCV 92, and platelet count 230,000 with normal manual differential. ASSESSMENT: 1. High output ileostomy with acute kidney injury. Her creatinine has risen from 0.6 to 2.4. 2. Hyperkalemia, resolved. Her potassium on admission was 7.5. Today's potassium is 4.3. 3. Hyponatremia, resolved. Her sodium has normalized. 4. Skin irritation around the stoma due to excessive ileostomy output. PLAN: To continue with IV fluid. Continue to monitor her electrolytes. We treated her with Kayexalate yesterday and her potassium has normalized. We are waiting for the Wound Care team. I would consult the Gastroenterology team to assist with high output ileostomy as this is the third time she was admitted with acute renal failure. CONNIE TOVAR MD DR: SOUTH/cat JOB#: [id number] / [id number]
[2017-10-10 03:25] VITALS: BP 102/50
[2017-10-10] MEDS: IV NORMAL SALINE 1000ML BAG 1,000 ML IV SCH (04:20)
[2017-10-10 05:02] LABS: HEMATOCRIT 33.9 % (36.0-47.0); HEMOGLOBIN 11.2 g/dL (12.0-15.5); RED BLOOD COUNT 3.63 x10^6/uL (3.50-5.40); RED CELL DISTRIBUTION WIDTH 13.5 % (11.5-14.5); WHITE BLOOD COUNT 7.2 x10^3/uL (4.0-11.0)
[2017-10-10 05:41] LABS: CALCIUM 7.7 mg/dL (8.5-10.1); GFR 52.7; POTASSIUM 3.7 mmol/L (3.5-5.1)
[2017-10-10 07:33] VITALS: BP 134/53
[2017-10-10] MEDS: ANTI-COAG MONITOR BY PHARMACY. MC PRN (08:56)
[2017-10-10] MEDS: APIXABAN 5 MG TABLET. PO SCH ×2 (09:00→19:27)
[2017-10-10] MEDS: amLODIPine BESYLATE 10 MG TABLET PO SCH (09:01)
[2017-10-10] MEDS: CARVEDILOL 12.5 MG TABLET. PO SCH ×2 (09:02→18:24)
[2017-10-10 10:28] VITALS: BP 117/42
--- NOTE | 2017-10-10 11:30 | PDOC ---
Subjective: Subjective: "I don't know" when asked about ostomy output. Tolerating PO, just a little abd soreness. Objective: Objective: Reviewed w/ RN - ~1000 out yesterday, then ~1200 out overnight. Less output this morning, stool tests pending. Tolerating PO. Reviewed w/ Dr. Evans earlier - concern w/ renal issues and increased ostomy output. Vital Signs: Vital Signs Date Time Temp Pulse Resp B/P (MAP) Pulse Ox O2 Delivery O2 Flow Rate FiO2 10/10/17 10:28 97.9 87 18 117/42 (67) 96 Room Air 97.9 Labs: Laboratory Tests Test 10/10/17 03:55 White Blood Count 7.2 x10^3/uL Red Blood Count 3.63 x10^6/uL Hemoglobin 11.2 g/dL Hematocrit 33.9 % Mean Corpuscular Volume 94 fL Mean Corpuscular Hemoglobin 31 pg Mean Corpuscular Hemoglobin Concent 33 g/dL Red Cell Distribution Width 13.5 % Platelet Count 202 x10^3/uL Sodium Level 140 mmol/L Potassium Level 3.7 mmol/L Chloride Level 111 mmol/L Carbon Dioxide Level 21 mmol/L Anion Gap 8 Blood Urea Nitrogen 15 mg/dL Creatinine 1.0 mg/dL Estimated GFR (Cockcroft-Gault) 52.7 Glucose Level 83 mg/dL Calcium Level 7.7 mg/dL Magnesium Level 2.0 mg/dL PE: GEN: NAD LUNGS: CTAB HEART: RRR ABD: BS+, soft, LLQ ostomy w/ dark liquid stool - bag maybe 1/4 full NEURO/PSYCH: A & O 3 A/P: S/p subtotal colectomy w/ end ileostomy Increased ostomy output - better PANCHITO - resolved -- Less output today? Await stool tests, consider Colestid, etc. ONEL BOB Oct 10, 2017 11:30
--- NOTE | 2017-10-10 11:34 | PN ---
DATE: 10/10/2017 SUBJECTIVE: The patient is resting slightly propped up in bed, in no apparent distress. She is awake, alert. On questioning her, she denied any pain, stated that she had mostly an uneventful night. The nursing staff did not voice any concern. OBJECTIVE: GENERAL: When I examined her, she was pale. No jaundice, cyanosis, or thyromegaly. No jugular venous distention. No lower limb edema. VITAL SIGNS: Her heart rate was 73, blood pressure 134/53, her temperature was 97.7, respiratory rate was 18 and oxygen saturation was 95% on room air. HEAD, EYES, EARS, NOSE AND THROAT: Showed normocephalic, atraumatic. NECK: Supple. HEART: Showed normal first and second heart sounds. No gallop, rub or murmur. CHEST: Clear to auscultation. No crepitation or rhonchi. ABDOMEN: Scaphoid, soft to the midline. Surgical incision healed nicely with no redness, tenderness or discharge. She has a colostomy bag in the left lower quadrant with the skin still irritated, but there is no tenderness. No guarding or rigidity. No organomegaly. All hernial orifice intact. Bowel sounds normal. NEUROLOGIC: She was awake, alert, responding appropriately. All cranial nerves are intact. She has left-sided hemiplegia. She is mostly bedbound, chair bound. Her intake over the last 24 hours was 1850, output was 1800. LABORATORY DATA: As of this morning showed a white cell count of 7200, hemoglobin 11, hematocrit 33, MCV 94 and platelet count 102,000. Her chemistry showed a serum sodium 140, potassium 3.7, chloride 111, bicarbonate 21, anion gap of 8, BUN 15, creatinine 1, estimated GFR was 53 mL per minute. Her glucose was 83, calcium was 7.7, and magnesium 2. ASSESSMENT: 1. High output ileostomy with acute kidney injury. Her creatinine has risen from 0.6 to 2.4. 2. Hyperkalemia, resolved. Her serum potassium on admission was 7.5. Today's potassium is down to 3.7. 3. Hyponatremia, resolved. Her serum sodium as of this morning is 140 mEq per liter, skin irritation around the stoma due to excessive ileostomy output. 4. Sigmoid stricture, status post subtotal colectomy and end ileostomy. 5. Right middle cerebral artery territory infarct with left-sided hemiplegia. 6. Hypertension. PLAN: My plan is to discontinue IV fluid, continue with wound care. We have consulted the Gastroenterology to assist with management of high output ileostomy. This is the third time she was admitted with acute renal failure. CONNIE TOVAR MD DR: SOUTH/cat JOB#: [id number] / [id number]
[2017-10-10 14:14] VITALS: BP 109/57
[2017-10-10 19:10] VITALS: BP 82/43
[2017-10-10] MEDS: fentaNYL PF VIAL 100 MCG/2 ML VIAL IV PRN (20:21)
[2017-10-10 23:00] VITALS: BP 119/83
[2017-10-11] MEDS: fentaNYL PF VIAL 100 MCG/2 ML VIAL IV PRN (01:04)
[2017-10-11 03:19] VITALS: BP 133/61
[2017-10-11 04:36] LABS: CALCIUM 7.8 mg/dL (8.5-10.1); CREATININE 0.9 mg/dL (0.6-1.0); GFR 59.5; MAGNESIUM 1.5 mg/dL (1.8-2.4); POTASSIUM 3.6 mmol/L (3.5-5.1)
[2017-10-11 07:20] VITALS: BP 101/62
[2017-10-11] MEDS ORDERED: oxyCODONE IR 5 MG TABLET PO PRN (08:15)
[2017-10-11] MEDS: ANTI-COAG MONITOR BY PHARMACY. MC PRN (08:32)
[2017-10-11] MEDS: APIXABAN 5 MG TABLET. PO SCH ×2 (09:11→21:51)
[2017-10-11] MEDS: CARVEDILOL 12.5 MG TABLET. PO SCH ×2 (09:11→17:40)
[2017-10-11] MEDS: MAGNESIUM OXIDE 400 MG TABLET PO SCH ×3 (09:11→21:51)
[2017-10-11] MEDS: amLODIPine BESYLATE 10 MG TABLET PO SCH (09:12)
--- NOTE | 2017-10-11 10:21 | PDOC ---
Subjective: Subjective: Had some heel pain overnight, better now. Thinks they "emptied a lot" from the bags. Ate breakfast, going to take a bath. Objective: Objective: D/w RN - 475cc liquid ostomy output overnight, plans to stay another day to monitor, primary wondering about Colestid. Vital Signs: Vital Signs Date Time Temp Pulse Resp B/P (MAP) Pulse Ox O2 Delivery O2 Flow Rate FiO2 10/11/17 09:12 67 101/62 10/11/17 07:20 98.0 20 96 Room Air 98.0 Labs: Laboratory Tests Test 10/11/17 03:30 Sodium Level 139 mmol/L Potassium Level 3.6 mmol/L Chloride Level 109 mmol/L Carbon Dioxide Level 24 mmol/L Anion Gap 6 Blood Urea Nitrogen 9 mg/dL Creatinine 0.9 mg/dL Estimated GFR (Cockcroft-Gault) 59.5 Glucose Level 82 mg/dL Calcium Level 7.8 mg/dL Magnesium Level 1.5 mg/dL PE: GEN: NAD, up to chair LUNGS: CTAB HEART: RRR ABD: ostomy left side w/ light brown liquid stool NEURO/PSYCH: A & O 3 A/P: S/p subtotal colectomy w/ end ileostomy PANCHITO w/ excessive ostomy output - resolved -- C Diff neg, other stool tests pending. Note Dr. Evans's concerns w/ repeated admissions for PANCHITO - will review need for Colestid or other w/ Dr. Cabrera, though ostomy output is much less now. Is on magnesium - ?contributing ONEL BOB Oct 11, 2017 10:21
[2017-10-11 11:00] VITALS: BP 117/63
--- NOTE | 2017-10-11 12:02 | PN ---
DATE: 10/11/2017 SUBJECTIVE: The patient is resting, slightly propped up in bed, no apparent distress. Did complain of pain in her left heel that has resolved this morning. Denied any pain around her stoma this morning. No nausea, no vomiting. OBJECTIVE: GENERAL: When I examined her this morning, she was pale, but no jaundice, cyanosis, or thyromegaly. No jugular venous distension. No lower limb edema. VITAL SIGNS: Her heart rate was 67, blood pressure 101/62, temperature was 98, respiratory rate was 20, and oxygen saturation was 96%. HEAD, EYES, EARS, NOSE AND THROAT: Showed normocephalic, atraumatic. NECK: Supple. HEART: Showed normal first and second heart sounds. No gallop, rub or murmur. CHEST: Clear to auscultation. No crepitation or rhonchi. ABDOMEN: Scaphoid, soft with a midline surgical incision that has healed nicely with no redness, tenderness or discharge. She has actually an ileostomy in the left lower quadrant. No tenderness. No guarding or rigidity. No organomegaly. Hernial orifices intact. Bowel sounds normal. NEUROLOGIC: She is awake, alert, responding appropriately. Cranial nerves intact. She has left-sided hemiplegia. She is mostly bedbound, chair bound. Her intake over the last 24 hours was 1500, output was 2375. LABORATORY DATA: This morning showed stool for C. diff were negative. Her white cell count was 7200, hemoglobin 11, hematocrit 33, MCV 94 and platelet count 202,000. Her chemistry showed a serum sodium 139, potassium 3.6, chloride 109, bicarbonate 24, anion gap of 6, BUN 9, creatinine 0.9, estimated GFR was 59 mL per minute. Her glucose was 82, calcium was 7.8, magnesium was 1.5. ASSESSMENT: 1. High output ileostomy with recurrent acute kidney injury has resolved. Her creatinine has risen from 0.6 to 0.4. Today's creatinine is 0.9 mg/dL. 2. Hyperkalemia, resolved. Her most recent serum potassium is down to 3.6 mEq per liter 3. Hyponatremia has normalized. Her serum sodium is up to 140 mEq per liter. 4. The patient has excessive ileostomy output with irritation of the skin around her stoma. 5. Sigmoid stricture, status post subtotal colectomy and end ileostomy. 6. Right middle cerebral artery territory infarct, left side hemiplegia. 7. Hypertension. 8. Hypomagnesemia. PLAN: My plan is to continue with the current plan of management. The Gastroenterology has seen the patient and ordered a C. diff toxins, which were negative. Her magnesium was low. I started her on magnesium oxide 400 mg 3 times a day and oxycodone immediate release 5 mg every 6 hours. I will observe her for another 24 hours as the Gastroenterology team is planning to start her on colestipol and she will probably be discharged back to [facility] tomorrow morning. CONNIE TOVAR MD DR: SOUTH/cat JOB#: [id number] / [id number]
[2017-10-11 15:00] VITALS: BP 106/64
[2017-10-11 19:25] VITALS: BP 134/59
[2017-10-11 23:05] VITALS: BP 139/78
[2017-10-12 03:30] VITALS: BP 141/61
[2017-10-12 04:41] LABS: CALCIUM 8.6 mg/dL (8.5-10.1); GFR 52.7; MAGNESIUM 1.6 mg/dL (1.8-2.4); POTASSIUM 3.4 mmol/L (3.5-5.1)
[2017-10-12 07:10] VITALS: BP 135/58
[2017-10-12] MEDS: APIXABAN 5 MG TABLET. PO SCH (07:48)
[2017-10-12] MEDS: amLODIPine BESYLATE 10 MG TABLET PO SCH (07:49)
[2017-10-12] MEDS: MAGNESIUM OXIDE 400 MG TABLET PO SCH ×2 (07:49→12:59)
[2017-10-12] MEDS: CARVEDILOL 12.5 MG TABLET. PO SCH (07:49)
--- NOTE | 2017-10-12 10:23 | PDOC ---
Subjective: Subjective: Feels fine, ate some oatmeal, talks a lot about being up and moving around more. Objective: Objective: D/w staff and reviewed past meds - got Kayexalate and lactulose over the weekend , probably contributed to increased ostomy output. Also getting magnesium. Vital Signs: Vital Signs Date Time Temp Pulse Resp B/P (MAP) Pulse Ox O2 Delivery O2 Flow Rate FiO2 10/12/17 08:00 Room Air 10/12/17 07:49 85 135/58 10/12/17 07:10 98.3 16 96 98.3 Labs: Laboratory Tests Test 10/12/17 02:35 Sodium Level 139 mmol/L Potassium Level 3.4 mmol/L Chloride Level 106 mmol/L Carbon Dioxide Level 29 mmol/L Anion Gap 4 Blood Urea Nitrogen 11 mg/dL Creatinine 1.0 mg/dL Estimated GFR (Cockcroft-Gault) 52.7 Glucose Level 78 mg/dL Calcium Level 8.6 mg/dL Magnesium Level 1.6 mg/dL PE: GEN: NAD, up to chair LUNGS: CTAB HEART: RRR ABD: soft, non-tender, LLQ ostomy w/ brown watery stool NEURO/PSYCH: A & O 3 A/P: S/p subtotal colectomy w/ end ileostomy -- Slightly more ostomy output than yesterday - if desired, try Colestid. ONEL BOB Oct 12, 2017 10:23
[2017-10-12 11:26] VITALS: BP 124/59
[2017-10-12] MEDS: ANTI-COAG MONITOR BY PHARMACY. MC PRN (13:58)
[2017-10-12] MEDS ORDERED: COLESTIPOL HCL 1 GM TABLET PO SCH (22:00)
--- NOTE | 2017-10-12 22:12 | PN ---
DATE: 10/12/2017 SUBJECTIVE: The patient's is sitting comfortably in her recliner, in no apparent respiratory distress. She is awake, alert, responding appropriately. Denied any complaint. The nursing staff did not voice any concern and stated she had an uneventful night. There leakage around her ostomy bag. PHYSICAL EXAMINATION: GENERAL: When I examined her, she was pale, but no jaundice, cyanosis, or thyromegaly. No jugular venous distension. No lower limb edema. VITAL SIGNS: Her heart rate was 73, blood pressure 135/58, temperature was 98.3, respiratory rate was 16, and oxygen saturation was 96%. The rest of clinical examination is unremarkable, has not really changed. Her intake over the last 24 hours was 680, output was 2375. LABORATORY DATA: Showed a white cell count 7200, hemoglobin 11, hematocrit 33, MCV 94 and platelet count 202,000. Her chemistry showed a serum sodium 138, potassium 3.4, chloride 106, bicarbonate 29, anion gap of 4, BUN 11, creatinine 52 mL per minute. Her glucose was 78. Calcium was 8.8, magnesium was 1.6. ASSESSMENT: 1. High output ileostomy with recurrent episodes of acute kidney injury that has resolved. Her serum creatinine has risen from 0.6-2.4 and today's creatinine is 1 mg. 2. Hypokalemia, resolved. Her most recent serum potassium is 3.4. 3. Hyponatremia, resolved. Her most recent serum sodium is up to 140 mEq per liter. 4. The excessive output caused irritation of the skin around her stoma. 5. Sigmoid stricture, status post subtotal colectomy and end ileostomy. 6. Right middle cerebral artery territory infarct with left side hemiplegia. 7. Hypertension. 8. Hypomagnesemia. PLAN: To continue with current plan of management. If she was accepted a swing bed in [facility], we will discharge her. CONNIE TOVAR MD DR: SOUTH/cat JOB#: [id number] / [id number]
== END 2017-10-12 14:35 | DRG 919 ==
LOC: ER 11:58 → 2 SOUTH 14:09
PROVIDERS: ADMIT Internal Medicine; ATTEND Internal Medicine
DX: T81.31XA Disruption of external operation (surgical) wound, not elsewhere classified, initial encounter (principal); N17.0 Acute kidney failure with tubular necrosis; E87.1 Hypo-osmolality and hyponatremia; I69.351 Hemiplegia and hemiparesis following cerebral infarction affecting right dominant side; K94.13 Enterostomy malfunction; E87.5 Hyperkalemia; Z88.6 Allergy status to analgesic agent; Z88.1 Allergy status to other antibiotic agents; Z88.0 Allergy status to penicillin; Z88.8 Allergy status to other drugs, medicaments and biological substances; E78.5 Hyperlipidemia, unspecified; E83.42 Hypomagnesemia; E87.6 Hypokalemia; I48.91 Unspecified atrial fibrillation; I10 Essential (primary) hypertension; L30.9 Dermatitis, unspecified; Z82.3 Family history of stroke; F41.9 Anxiety disorder, unspecified; M19.90 Unspecified osteoarthritis, unspecified site; Z82.49 Family history of ischemic heart disease and other diseases of the circulatory system; Z90.49 Acquired absence of other specified parts of digestive tract; Z98.41 Cataract extraction status, right eye; Z98.42 Cataract extraction status, left eye; Z90.710 Acquired absence of both cervix and uterus; Z83.3 Family history of diabetes mellitus; Z87.440 Personal history of urinary (tract) infections
CPT/HCPCS: 36415; 51702; 80048; 80053; 83735; 85025; 85027; 87045; 87324; 87329; 87641; 93005; 94644; 96374; 96375; J0610; J1815; J2405; J3010; J3475; J7030; J7040; J7042; J7613; 97110; 97116; 97530; 99285-25

== ENCOUNTER 2017-11-01 20:11 | Inpatient (IN) | payer MEDICARE, OTHER ==
[2017-11-01] VITALS (8 sets, daily range): BP systolic 75–108; BP diastolic 36–65
[~2017-11-01] VITALS: Ht 152.4 cm; Wt 64.0 kg
[~2017-11-01 20:11] MED LIST changes: -AMLO10TA2 PO; +AMLO10TA6 PO
[2017-11-01] MEDS ORDERED: ONDANSETRON PF 4 MG/2 ML VIAL. IV PRN (22:45)
[2017-11-01] MEDS: IV NORMAL SALINE 1000ML BAG 1,000 ML IV SCH (23:06)
[2017-11-01 23:42] LABS: BILIRUBIN,URINE SMALL (NEG); CLARITY,URINE CLOUDY; COLOR,URINE AMBER; NITRITE,URINE NEGATIVE (NEG); PROTEIN,URINE NEGATIVE (NEG-TRACE); UROBILINOGEN,URINE 0.2 mg/dL (0.2 mg/dL)
[2017-11-01 23:48] LABS: AMORPHOUS SEDIMENT,UR PRESENT /HPF; BACTERIA,URINE 0 /HPF (0-FEW); HYALINE CASTS, URINE FEW /HPF; RBC,URINE 0 /HPF (0-2); WBC,URINE OCC /HPF (0-4)
[2017-11-02] VITALS (33 sets, daily range): BP systolic 58–137; BP diastolic 40–90
[2017-11-02 00:16] LABS: BASO # 0.1 x10^3/uL (0.0-0.2); BASO % 1 % (0-3); EOS # 0.2 x10^3/uL (0.0-0.7); EOS % 2 % (0-3); HEMATOCRIT 38.8 % (36.0-47.0); LYMPH # 1.1 x10^3/uL (1.0-4.8); LYMPH % 12 % (24-48); MEAN CORPUSCULAR HEMOGLOBIN 31 pg (25-35); MEAN CORPUSCULAR HGB CONC 34 g/dL (31-37); MEAN CORPUSCULAR VOLUME 91 fL (79-100); MONO # 0.9 x10^3/uL (0.0-1.1); MONO % 9 % (0-9); NEUT # 7.2 x10^3uL (1.8-7.7); NEUT % 76 % (31-73); PLATELET COUNT 312 x10^3/uL (140-400); RED BLOOD COUNT 4.26 x10^6/uL (3.50-5.40); RED CELL DISTRIBUTION WIDTH 14.2 % (11.5-14.5); WHITE BLOOD COUNT 9.4 x10^3/uL (4.0-11.0)
[2017-11-02 00:25] LABS: CALCIUM 8.3 mg/dL (8.5-10.1); CREATININE 4.4 mg/dL (0.6-1.0); GFR 9.5; POTASSIUM 5.7 mmol/L (3.5-5.1)
[2017-11-02] MEDS: cefTRIAXone IV Push 1 GM VIAL. IVP SCH (00:29)
[2017-11-02] MEDS ORDERED: IV NORMAL SALINE 500ML BAG 500 ML IV PRN (00:45)
[2017-11-02] MEDS ORDERED: IV NORMAL SALINE 500ML BAG 500 ML IV ONE (03:00)
[2017-11-02] MEDS: IV NORMAL SALINE 1000ML BAG 1,000 ML IV SCH ×3 (03:59→19:10)
[2017-11-02 06:00] LABS: BASO # 0.1 x10^3/uL (0.0-0.2); BASO % 1 % (0-3); EOS # 0.1 x10^3/uL (0.0-0.7); EOS % 1 % (0-3); HEMATOCRIT 31.8 % (36.0-47.0); HEMOGLOBIN 10.5 g/dL (12.0-15.5); LYMPH # 0.9 x10^3/uL (1.0-4.8); LYMPH % 10 % (24-48); MEAN CORPUSCULAR HEMOGLOBIN 31 pg (25-35); MEAN CORPUSCULAR HGB CONC 33 g/dL (31-37); MEAN CORPUSCULAR VOLUME 93 fL (79-100); MONO # 0.9 x10^3/uL (0.0-1.1); MONO % 11 % (0-9); NEUT # 6.5 x10^3uL (1.8-7.7); NEUT % 77 % (31-73); PLATELET COUNT 260 x10^3/uL (140-400); RED BLOOD COUNT 3.43 x10^6/uL (3.50-5.40); RED CELL DISTRIBUTION WIDTH 13.9 % (11.5-14.5); WHITE BLOOD COUNT 8.4 x10^3/uL (4.0-11.0)
[2017-11-02 06:11] LABS: CALCIUM 8.1 mg/dL (8.5-10.1); CREATININE 3.7 mg/dL (0.6-1.0); GFR 11.6
[2017-11-02 06:13] LABS: POTASSIUM 5.2 mmol/L (3.5-5.1)
--- NOTE | 2017-11-02 08:54 | PDOC ---
Provider Note Provider Note Pt seen consult dictated JEFF SMYTH MD Nov 02, 2017 08:54
--- NOTE | 2017-11-02 09:52 | CONS ---
DATE OF CONSULTATION: 11/02/2017 REFERRING PHYSICIAN: Dr. Evans. REASON FOR CONSULTATION: Sepsis. HISTORY OF PRESENT ILLNESS: The patient is unable to give history. History obtained from the staff and records from [facility]. Pt is admitted to ICU. An 87-year-old female with past medical history of subtotal colectomy with end ileostomy and Meckel's diverticulectomy, who was recently discharged from [facility] last week of September, at which time she was admitted with wound issues and high output from ostomy. She was found to have PANCHITO. She was brought yesterday to [facility] due to altered mental status. She was having again acute renal insufficiency with creatinine being high around 5 with BUN of 57, sodium at 133 and potassium at 6.0. White count was normal. Hemoglobin was 13.5, platelets was 387. She underwent CT of the head, which was reported negative for any acute intracranial abnormality. She is currently transferred to ICU at [place] for further evaluation and treatment. Her creatinine has improved since admission coming around 3.7 with BUN at 54, creatinine 6.0. She is currently on dobutamine and Rocephin. This a.m., patient is alert, awake, but is still confused. She is asking for her son and her grandson. She denies any pain. Denies any fevers, chills, nausea, vomiting, abdominal pain, though she remains confused. 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 FAMILY HISTORY: Heart disease, stroke. SOCIAL HISTORY: She denies smoking, EtOH, or illicit drug use. Lives with family. CURRENT MEDICATIONS: Ceftriaxone. Other medications reviewed in medication list. ALLERGIES: PENICILLIN, SEVERE HIVES, THOUGH PATIENT IS TOLERATING CEFTRIAXONE WELL; ACETAMINOPHEN; IBUPROFEN; AMPICILLIN, MILD DIARRHEA; AZITHROMYCIN, MILD DIARRHEA; CETIRIZINE; BUDESONIDE; DABIGATRAN; TETRACYCLINE; ALBUTEROL; CODEINE; DIPHENHYDRAMINE; ERYTHROMYCIN. REVIEW OF SYSTEMS: Limited, but as above. The patient remains confused. PHYSICAL EXAMINATION: VITAL SIGNS: Stable, afebrile. Temperature 97.8, pulse 89, respiratory rate 11, blood pressure 137/50, oxygen saturation 95% on 2 liters. GENERAL: Alert, awake, confused female, lying comfortably in bed, cooperative, in no acute distress. HEENT: Normocephalic, atraumatic. Anicteric. LUNGS: Clear bilaterally. HEART: S1, S2. ABDOMEN: Soft. Ostomy in place. Incision well healed. EXTREMITIES: No edema, no cyanosis. MUSCULOSKELETAL: No decrease in range of motion. NEUROLOGIC: Alert, awake. Left-sided weakness. DERMATOLOGIC: No generalized rash, warm, dry. LABORATORY DATA: WBC 8.4, hemoglobin 10.5, hematocrit 31.8, platelets 260, segments 77. Sodium 140, potassium 5.2, chloride 104, bicarbonate 25, BUN 54, creatinine 3.7, glucose 121, lactate 0.9, calcium 8.1. UA negative. Microbiology: None here. Imaging: None here. CT of the head at [place], report reviewed, no acute abnormality. UA negative at [place]. IMPRESSION: 1. Altered mental status, likely metabolic encephalopathy.Improving slowly 2. Acute kidney injury, hyperkalemia. 3. Sepsis, likely metabolic.afebrile normal wbc 4. 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 5. History of atrial fibrillation, 6. hypertension, hyperlipidemia. 7. History of cerebrovascular accident. 8. Degenerative joint disease. RECOMMENDATIONS: 1. Continue empiric ceftriaxone. 2. Follow up labs in a.m. 3. Continue supportive care. 4. If patient have fevers, repeat pancultures and low threshold to start broad spectrum antibiotic therapy. Thank you, Dr. Evans, for consulting Infectious Disease to participate in this patient's care. If you have any questions, do not hesitate to contact me. JEFF SMYTH MD DR: EDEL/cat JOB#: [id number] / [id number] KARINA
--- NOTE | 2017-11-02 11:07 | PDOC2 ---
CONSULT Date of Consult Date of Consult DATE: 11/02/17 TIME: 11:00 Reason for Consult Reason for Consult: PANCHITO Referring Physician Referring Physician: GUY Identification/Chief Complaint Chief Complaint CONFUSION Source Source: Caregiver, Chart review History of Present Illness Reason for Visit: THIS IS AN 87 YR OLD WITH CONFUSION AND WEAKNESS, SHE IS ALSO NEEDING HELP GETTING UP. SHE ALSO COMPLAINED OF HER VISION DETERIORATING. HX NOTABLE FOR SIGMOID STRICTURE AND THEN NEEDED A SUBTOTAL COLECTOMY WITH END ILEOSTOMY IN SEP. HAS HAD POOR PO INTAKE IN GENERAL. FUNCTIONAL STATUS HAS DETERIORATED SINCE THEN. NO CKD NOTED. WHILE HERE SHE IS HYPOTENSIVE AND NOTED TO HAVE PANCHITO WITH A CR OF OVER 4.0. PER SON HER OSTOMY OUTPUT HAS BEEN LIQUID LIKE AND HIGH. NO NEPHROTOXINS NOTED Past Medical History Cardiovascular: AFIB, HTN, Hyperlipidemia CENTRAL NERVOUS SYSTEM: CVA Musculoskeletal: Osteoarthritis Rheumatologic: Fibromyalgia Renal/: No pertinent hx Endocrine: No pertinent hx Past Surgical History Past Surgical History: Cholecystectomy, Cataract Removal, , Hysterectomy, Other Family History Family History: Heart Disease, Stroke Social History ALCOHOL: none Drugs: None Lives: with Family Current Medications Current Medications Current Medications Sodium Chloride 1,000 ml @ 125 mls/hr Q8H IV Last administered on 11/02/17at 03 :59; Start 11/01/17 at 23:00 Ondansetron HCl (Zofran) 4 mg PRN Q4HRS PRN IV NAUSEA/VOMITING [facility] Last administered on 11/01/17at 23:42; Start 11/01/17 at 22:45 Dopamine HCl/ Dextrose 250 ml @ 0 mls/hr CONT PRN IV SEE I/O RECORD Last administered on 11/01/17at 23:06; Start 11/01/17 at 22:45 Ceftriaxone Sodium 1 gm/ Dextrose 50 ml @ 100 mls/hr Q24H IV ; Start 11/01/17 at 23:45; Status UNV Ceftriaxone Sodium (Rocephin) 1 gm Q24H IVP Last administered on 11/02/17at 00: 29; Start 11/02/17 at 00:00 Sodium Chloride 500 ml @ 500 mls/hr PRN Q2HR PRN IV Low BP; Start 11/02/17 at 00:45 Sodium Chloride 500 ml @ 500 mls/hr 1X ONCE IV Last administered on at 03:02; Start 11/02/17 at 03:00; Stop 11/02/17 at 03:59; Status DC Active Scripts Active Reported Potassium Chloride 10 Meq Tab.sr.24h 10 Meq PO DAILY Lisinopril 20 Mg Tablet 20 Mg PO BIDBFRMEAL PRN Hydrochlorothiazide Tablet (Hydrochlorothiazide) 25 Mg Tablet 25 Mg PO DAILY Carvedilol 12.5 Mg Tablet 12.5 Mg PO BID Amlodipine Besylate 10 Mg Tablet 10 Mg PO DAILY Allergies Allergies: Coded Allergies: Penicillins (Verified Allergy, Severe, Hives, 09/14/17) acetaminophen (Verified Allergy, Intermediate, 09/14/17) WHEN PT TOOK MED, HAD A FEELING THAT SOMETHING WAS ON SKIN BUT FEELING SUBSIDED AFTER A SHORT PERIOD OF TIME. PT THEN SEEMED TO TOLERATE MED OK. ibuprofen (Verified Allergy, Intermediate, 09/14/17) ampicillin (Verified Allergy, Mild, Diarrhea, 09/21/17) azithromycin (Verified Allergy, Mild, Diarrhea, 09/21/17) cetirizine (Verified Allergy, Mild, RASH, 10/07/17) I S O L A T I O N *CONTACT* (Verified Allergy, Unknown, 09/14/17) mrsa budesonide (Verified Adverse Reaction, Severe, 09/21/17) cannot urinate for days dabigatran etexilate (Verified Adverse Reaction, Severe, 09/20/17) severe bleeding requiring transfusion Tetracyclines (Verified Adverse Reaction, Intermediate, Nausea and Vomiting, 10/07/17) albuterol (Verified Adverse Reaction, Intermediate, Nausea and Vomiting, ) codeine (Verified Adverse Reaction, Intermediate, 09/19/17) GI issues, nausea and vomiting diphenhydramine (Verified Adverse Reaction, Intermediate, URINARY RETENTION, 09/21/17) urinary retention erythromycin base (Verified Adverse Reaction, Intermediate, 10/07/17) pt states, "can't pee" tetracycline (Verified Adverse Reaction, Intermediate, Diarrhea, 09/20/17) ROS Review of System UNABLE TO OBTAIN FROM PT Physical Exam General: Alert, No acute distress HEENT: Atraumatic, Other (DRY MUCOSA) Lungs: Clear to auscultation, Normal air movement Heart: Regular rate Abdomen: Normal bowel sounds Neuro: Other (CONFUSED BUT NO ASYMMETRY) Psych/Mental Status: Other (CONFUSED) MUSCULOSKELETAL: No deformity, No swelling Vitals VITALS Vital Signs Date Time Temp Pulse Resp B/P (MAP) Pulse Ox O2 Delivery O2 Flow Rate FiO2 11/02/17 07:00 89 11 137/50 (79) 95 Nasal Cannula 2.0 11/02/17 04:00 97.8 97.8 Labs Labs Laboratory Tests Test 11/01/17 23:19 11/01/17 23:45 11/01/17 23:55 11/02/17 05:47 Urine Collection Type Unknown Urine Color Maria Ines Urine Clarity Cloudy Urine pH 5.0 Urine Specific [place] 1.025 Urine Protein Negative mg/dL (NEG-TRACE) Urine Glucose (UA) Negative mg/dL (NEG) Urine Ketones (Stick) Trace mg/dL (NEG) Urine Blood Negative (NEG) Urine Nitrite Negative (NEG) Urine Bilirubin Small (NEG) Urine Urobilinogen Dipstick 0.2 mg/dL (0.2 mg/dL) Urine Leukocyte Esterase Negative (NEG) Urine RBC 0 /HPF (0-2) Urine WBC Occ /HPF (0-4) Urine Squamous Epithelial Cells None /LPF Urine Amorphous Sediment Present /HPF Urine Bacteria 0 /HPF (0-FEW) Urine Hyaline Casts Few /HPF Urine Mucus Mod /LPF White Blood Count 9.4 x10^3/uL (4.0-11.0) 8.4 x10^3/uL (4.0-11.0) Red Blood Count 4.26 x10^6/uL (3.50-5.40) 3.43 x10^6/uL (3.50-5.40) Hemoglobin 13.0 g/dL (12.0-15.5) 10.5 g/dL (12.0-15.5) Hematocrit 38.8 % (36.0-47.0) 31.8 % (36.0-47.0) Mean Corpuscular Volume 91 fL (79-100) 93 fL (79-100) Mean Corpuscular Hemoglobin 31 pg (25-35) 31 pg (25-35) Mean Corpuscular Hemoglobin Concent 34 g/dL (31-37) 33 g/dL (31-37) Red Cell Distribution Width 14.2 % (11.5-14.5) 13.9 % (11.5-14.5) Platelet Count 312 x10^3/uL (140-400) 260 x10^3/uL (140-400) Neutrophils (%) (Auto) 76 % (31-73) 77 % (31-73) Lymphocytes (%) (Auto) 12 % (24-48) 10 % (24-48) Monocytes (%) (Auto) 9 % (0-9) 11 % (0-9) Eosinophils (%) (Auto) 2 % (0-3) 1 % (0-3) Basophils (%) (Auto) 1 % (0-3) 1 % (0-3) Neutrophils # (Auto) 7.2 x10^3uL (1.8-7.7) 6.5 x10^3uL (1.8-7.7) Lymphocytes # (Auto) 1.1 x10^3/uL (1.0-4.8) 0.9 x10^3/uL (1.0-4.8) Monocytes # (Auto) 0.9 x10^3/uL (0.0-1.1) 0.9 x10^3/uL (0.0-1.1) Eosinophils # (Auto) 0.2 x10^3/uL (0.0-0.7) 0.1 x10^3/uL (0.0-0.7) Basophils # (Auto) 0.1 x10^3/uL (0.0-0.2) 0.1 x10^3/uL (0.0-0.2) Sodium Level 137 mmol/L (136-145) 140 mmol/L (136-145) Potassium Level 5.7 mmol/L (3.5-5.1) 5.2 mmol/L (3.5-5.1) Chloride Level 101 mmol/L (98-107) 104 mmol/L (98-107) Carbon Dioxide Level 26 mmol/L (21-32) 25 mmol/L (21-32) Anion Gap 10 (6-14) 11 (6-14) Blood Urea Nitrogen 57 mg/dL (7-20) 54 mg/dL (7-20) Creatinine 4.4 mg/dL (0.6-1.0) 3.7 mg/dL (0.6-1.0) Estimated GFR (Cockcroft-Gault) 9.5 11.6 Glucose Level 133 mg/dL (70-99) 121 mg/dL (70-99) Calcium Level 8.3 mg/dL (8.5-10.1) 8.1 mg/dL (8.5-10.1) Lactic Acid Level 0.9 mmol/L (0.4-2.0) Laboratory Tests Test 11/01/17 23:19 11/01/17 23:45 11/01/17 23:55 11/02/17 05:47 Urine Collection Type Unknown Urine Color Maria Ines Urine Clarity Cloudy Urine pH 5.0 Urine Specific [place] 1.025 Urine Protein Negative mg/dL (NEG-TRACE) Urine Glucose (UA) Negative mg/dL (NEG) Urine Ketones (Stick) Trace mg/dL (NEG) Urine Blood Negative (NEG) Urine Nitrite Negative (NEG) Urine Bilirubin Small (NEG) Urine Urobilinogen Dipstick 0.2 mg/dL (0.2 mg/dL) Urine Leukocyte Esterase Negative (NEG) Urine RBC 0 /HPF (0-2) Urine WBC Occ /HPF (0-4) Urine Squamous Epithelial Cells None /LPF Urine Amorphous Sediment Present /HPF Urine Bacteria 0 /HPF (0-FEW) Urine Hyaline Casts Few /HPF Urine Mucus Mod /LPF White Blood Count 9.4 x10^3/uL (4.0-11.0) 8.4 x10^3/uL (4.0-11.0) Red Blood Count 4.26 x10^6/uL (3.50-5.40) 3.43 x10^6/uL (3.50-5.40) Hemoglobin 13.0 g/dL (12.0-15.5) 10.5 g/dL (12.0-15.5) Hematocrit 38.8 % (36.0-47.0) 31.8 % (36.0-47.0) Mean Corpuscular Volume 91 fL (79-100) 93 fL (79-100) Mean Corpuscular Hemoglobin 31 pg (25-35) 31 pg (25-35) Mean Corpuscular Hemoglobin Concent 34 g/dL (31-37) 33 g/dL (31-37) Red Cell Distribution Width 14.2 % (11.5-14.5) 13.9 % (11.5-14.5) Platelet Count 312 x10^3/uL (140-400) 260 x10^3/uL (140-400) Neutrophils (%) (Auto) 76 % (31-73) 77 % (31-73) Lymphocytes (%) (Auto) 12 % (24-48) 10 % (24-48) Monocytes (%) (Auto) 9 % (0-9) 11 % (0-9) Eosinophils (%) (Auto) 2 % (0-3) 1 % (0-3) Basophils (%) (Auto) 1 % (0-3) 1 % (0-3) Neutrophils # (Auto) 7.2 x10^3uL (1.8-7.7) 6.5 x10^3uL (1.8-7.7) Lymphocytes # (Auto) 1.1 x10^3/uL (1.0-4.8) 0.9 x10^3/uL (1.0-4.8) Monocytes # (Auto) 0.9 x10^3/uL (0.0-1.1) 0.9 x10^3/uL (0.0-1.1) Eosinophils # (Auto) 0.2 x10^3/uL (0.0-0.7) 0.1 x10^3/uL (0.0-0.7) Basophils # (Auto) 0.1 x10^3/uL (0.0-0.2) 0.1 x10^3/uL (0.0-0.2) Sodium Level 137 mmol/L (136-145) 140 mmol/L (136-145) Potassium Level 5.7 mmol/L (3.5-5.1) 5.2 mmol/L (3.5-5.1) Chloride Level 101 mmol/L (98-107) 104 mmol/L (98-107) Carbon Dioxide Level 26 mmol/L (21-32) 25 mmol/L (21-32) Anion Gap 10 (6-14) 11 (6-14) Blood Urea Nitrogen 57 mg/dL (7-20) 54 mg/dL (7-20) Creatinine 4.4 mg/dL (0.6-1.0) 3.7 mg/dL (0.6-1.0) Estimated GFR (Cockcroft-Gault) 9.5 11.6 Glucose Level 133 mg/dL (70-99) 121 mg/dL (70-99) Calcium Level 8.3 mg/dL (8.5-10.1) 8.1 mg/dL (8.5-10.1) Lactic Acid Level 0.9 mmol/L (0.4-2.0) Assessment/Plan Assessment/Plan IMP PANCHITO-ATN HYPERKALEMIA DEHYDRATION HYPOTENSION HIGH OUTPUT OSTOMY S/P SUBTOTAL COLECTOMY AND END ILEOSTOMY IN AUG HYPOMAGNESEMIA MET ENCEPHALOPATHY PLAN SUPPLEMENT ELECTROLYTES VOLUME EXPANSION ANTIBIOTICS PRESSORS HOLD HER K, LENORE-I AND NORVASC UPDATED SON BHARTI JOHNSON MD Nov 02, 2017 11:07
--- NOTE | 2017-11-02 12:46 | HP ---
ADMIT DATE: 11/01/2017 HISTORY OF PRESENT ILLNESS: The patient is an 87-year-old female patient who was discharged from a swing bed at [facility] only last Tuesday and her son basically noted that she has been more confused, complaining of being dizzy and about to fall, also complaining of some intractable back pain. She has dysarthria and difficulty swallowing. Her colostomy bag was emptied multiple times. Her blood pressure was low by the home health nurses and decision was made to transfer her to the Emergency Room for further evaluation, where she was found to be hypotensive with acute kidney injury and hyperkalemia. Her urine was very turbid and was sent for culture and sensitivity. She was started on IV fluid, IV antibiotic and was admitted to the ICU, where she required vasopressors. This is actually the third time that she was discharged home and was able to stay there only for about 2-3 days. Every time she comes with exactly the same presentation with dysarthria and acute kidney injury and hyperkalemia. She has high output ileostomy and on her last admission here, she was discharged on colestipol 2 grams twice a day. PAST MEDICAL HISTORY: Significant for hypertension and chronic atrial fibrillation. She is also known to have osteoarthritis as well as hyperlipidemia, right middle cerebral artery territory infarct with left side hemiplegia about 16 years ago. She is mostly in a power chair, although she can use a walker to transfer. She was admitted with bowel obstruction and underwent a subtotal colectomy, end ileostomy and a Meckel's diverticulectomy. PAST SURGICAL HISTORY: Significant for total abdominal hysterectomy, bilateral salpingo-oophorectomy, cholecystectomy, bilateral cataract extraction, colonoscopy and esophagogastroduodenoscopy. She has had section and most recently, subtotal colectomy, end ileostomy and Meckel's diverticulectomy. ALLERGIES: SHE IS ALLERGIC TO PENICILLIN, ACETAMINOPHEN, ALBUTEROL, AMPICILLIN, AZITHROMYCIN, CETIRIZINE, CODEINE AND DIPHENHYDRAMINE. MEDICATIONS: She was on carvedilol 12.5 mg twice a day, amlodipine 10 mg once a day, lisinopril 20 mg twice a day, potassium chloride 10 mEq daily and hydrochlorothiazide 25 mg once a day. FAMILY HISTORY: She has 3 brothers and 5 sisters. One older brother of myocardial infarction and CVA and 4 sisters, all of them with complication of diabetes, coronary artery disease and cerebrovascular accident. She has one older sister who is still alive at the age of 90 and one younger brother at the age of 77, still alive. Her mother at age of 84 because of his pneumonia and CVA. Her father committed suicide at age of 52. SOCIAL HISTORY: She is , lives with her son. One of her sons of diabetes and aneurysm. She never smoked, does not drink alcohol or recreational drugs. REVIEW OF SYSTEMS: As per history of present illness. PHYSICAL EXAMINATION: GENERAL: On arrival to the Emergency Room, she was pale, but not jaundiced. No lymphadenopathy, no thyromegaly. No jugular venous distention. No lower limb edema. VITAL SIGNS: Her heart rate was 92, blood pressure was 91/52, temperature was 97.7, respiratory rate was 18 and oxygen saturation was 94%. HEENT: Examination of the head, eyes, ears, nose and throat showed normocephalic, atraumatic. NECK: Supple. HEART: Showed normal first and second heart sounds. No gallop, rub or murmur. CHEST: Clear to auscultation. No crepitation or rhonchi. ABDOMEN: Distended, soft with a colostomy in the left lower quadrant. There is no guarding. No organomegaly. Her bowel sounds are normal. NEUROLOGIC: She is very confused, has marked dysarthria and nominal aphasia. She has obviously left-sided hemiplegia. LABORATORY DATA: Her lab work on arrival showed a white cell count 9400, hemoglobin 13, hematocrit 39, MCV 91 and platelet count 312,000 with normal manual differential. Her serum sodium was 137, potassium 5.7, chloride 101, bicarbonate 26, anion gap of 10, BUN 57, creatinine 4.4, estimated GFR was 9.5, her glucose was 133 and calcium was 8.3. Her lactic acid was 0.9. Her urinalysis showed the urine was yefri, cloudy with a pH of 5 and specific gravity of 1.025. The urine was negative for protein and glucose. There was trace of ketones, negative for blood and nitrite. It was negative for leukocyte esterase. There were no rbc's, occasional wbc's, and no bacteria. SUMMARY: In summary, this is an 87-year-old female patient who was yet again admitted with altered mental status and also acute kidney injury and hyperkalemia. She is known to have high-output ileostomy and last time she was discharged to go on a colestipol 2 grams twice a day. I did actually at this time discontinue her lisinopril. She was given loading dose of IV fluids. She did receive a total of 1000 mL of normal saline and continued on IV fluid at 125. She is on Levophed as well as Rocephin. We will monitor her lab work given that she has failed multiple times. I had a lengthy discussion with her son and she probably needs to be admitted to a long-term care facility and probably consider hospice. CONNIE TOVAR MD DR: SOUTH/cat JOB#: [id number] / [id number]
--- NOTE | 2017-11-02 14:03 | PDOC2 ---
PALLIATIVE CARE Palliative Care Note Palliative Care Consult requested by Dr. Evans to address plan of care Medical Assessment per Medical Record Altered Mental Status---Metabolic Encephalopathy Acute Kidney Injury--Hyperkalemia Sepsis S/P subtotal colectomy with end ileostomy and Meckel diverticulectomy (September) History of HTN, CVA, DJD Patient alert. Denies pain or SOB. States she has had frequent hospitalizations. Received permission to speak with son Akshat Oden called. Message to return call. LEA BAEZA Nov 02, 2017 14:03
--- NOTE | 2017-11-02 15:15 | PN ---
DATE: 11/02/2017 SUBJECTIVE: The patient is resting slightly propped up in bed, in no apparent distress. She continues to be somewhat confused, dysarthric, but generally better. OBJECTIVE: GENERAL: When I examined her, she was resting slightly propped up in bed, in no apparent respiratory distress, slightly pale, but no jaundice, cyanosis, or thyromegaly. No jugular venous distension. No limb edema. VITAL SIGNS: Her heart rate was 75, blood pressure was 127/73, temperature was 97.7, respiratory rate was 16, and oxygen saturation was 95% on 2 liters of oxygen. HEAD, EYES, EARS, NOSE AND THROAT: Normocephalic, atraumatic. NECK: Supple. HEART: Showed normal first and second heart sounds. No gallop, rub or murmur. CHEST: Clear to auscultation. No crepitation or rhonchi. ABDOMEN: Distended, soft, nontender with colostomy in the left lower quadrant. No guarding or rigidity. No organomegaly. All hernial orifices intact. Bowel sounds normal. NEUROLOGIC: She is confused, has some dysarthria and occasional expressive aphasia. She has left side hemiplegia with fixed flexion contraction of the left upper extremity. She is mostly bedbound and chair bound. Her intake over the last 24 hours was , output was 350. LABORATORY DATA: Her lab work this morning showed that her serum sodium was 140, potassium 5.2, chloride 104, bicarbonate 25, anion gap of 11, BUN 54, creatinine 3.7, estimated GFR was 11.6, glucose was 121 and calcium was 8.1. Her white cell count was 8400, hemoglobin 10.5, hematocrit 42, MCV 93 and platelet count 260,000 with normal manual differential. ASSESSMENT: 1. Altered mental status. 2. Acute kidney injury. 3. Hyperkalemia. 4. She is status post subtotal colectomy with end ileostomy and Meckel's diverticulectomy done. She has been actually admitted with this presentation about 5 or 6 times. On her last admission to [place], we discharged her to swing bed on colestipol, as she has high ileostomy output. 5. Other medical problems include atrial fibrillation, hypertension, hyperlipidemia. She has a right middle cerebral artery territory infarct, left side hemiplegia and generalized degenerative disk and joint disease. PLAN: To continue with IV fluid. Continue to monitor her lab work. I will hold all her blood pressure medication for now. I will contact [facility] to find out the exact medication that she was discharged on because she had not been on lisinopril and she was supposed to be on colestipol to slowly reduce the ileostomy output. CONNIE TOVAR MD DR: SOUTH/cat JOB#: [id number] / [id number]
--- NOTE | 2017-11-02 15:17 | PDOC ---
Subjective: Subjective: Please see GI consults from 09/13 and 10/09. 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 We saw her again last month re: increased ostomy output and PANCHITO. Ostomy output decreased/normalized as inpt, stool tests were negative -- discussion of adding Colestid if needed. Went to swing bed at [facility], then to home last Tuesday, back to ER w/ AMS, dizziness, back pain, and reports of choking while eating. Evaluated in ER, was hypotensive w/ PANCHITO and hyperkalemia. Again, reports of increased ostomy output. Since last night in ICU, bag has not needed emptying. RN does not note difficulty swallowing jello, but needs help eating. [employer] riley pending. Not much meaningful history from the patient this afternoon - having some trouble finding words, though very pleasant as always. Indicates she did have increased ostomy output and some abd pain at some point. Palliative care asked to see. Objective: Vital Signs: Vital Signs Date Time Temp Pulse Resp B/P (MAP) Pulse Ox O2 Delivery O2 Flow Rate FiO2 11/02/17 13:00 84 18 92/56 (68) 95 Nasal Cannula 2.0 11/02/17 12:00 99.0 99.0 Labs: Laboratory Tests Test 11/01/17 23:19 11/01/17 23:45 11/01/17 23:55 11/02/17 05:47 Urine Collection Type Unknown Urine Color Maria Ines Urine Clarity Cloudy Urine pH 5.0 Urine Specific [place] 1.025 Urine Protein Negative mg/dL Urine Glucose (UA) Negative mg/dL Urine Ketones (Stick) Trace mg/dL Urine Blood Negative Urine Nitrite Negative Urine Bilirubin Small Urine Urobilinogen Dipstick 0.2 mg/dL Urine Leukocyte Esterase Negative Urine RBC 0 /HPF Urine WBC Occ /HPF Urine Squamous Epithelial Cells None /LPF Urine Amorphous Sediment Present /HPF Urine Bacteria 0 /HPF Urine Hyaline Casts Few /HPF Urine Mucus Mod /LPF White Blood Count 9.4 x10^3/uL 8.4 x10^3/uL Red Blood Count 4.26 x10^6/uL 3.43 x10^6/uL Hemoglobin 13.0 g/dL 10.5 g/dL Hematocrit 38.8 % 31.8 % Mean Corpuscular Volume 91 fL 93 fL Mean Corpuscular Hemoglobin 31 pg 31 pg Mean Corpuscular Hemoglobin Concent 34 g/dL 33 g/dL Red Cell Distribution Width 14.2 % 13.9 % Platelet Count 312 x10^3/uL 260 x10^3/uL Neutrophils (%) (Auto) 76 % 77 % Lymphocytes (%) (Auto) 12 % 10 % Monocytes (%) (Auto) 9 % 11 % Eosinophils (%) (Auto) 2 % 1 % Basophils (%) (Auto) 1 % 1 % Neutrophils # (Auto) 7.2 x10^3uL 6.5 x10^3uL Lymphocytes # (Auto) 1.1 x10^3/uL 0.9 x10^3/uL Monocytes # (Auto) 0.9 x10^3/uL 0.9 x10^3/uL Eosinophils # (Auto) 0.2 x10^3/uL 0.1 x10^3/uL Basophils # (Auto) 0.1 x10^3/uL 0.1 x10^3/uL Sodium Level 137 mmol/L 140 mmol/L Potassium Level 5.7 mmol/L 5.2 mmol/L Chloride Level 101 mmol/L 104 mmol/L Carbon Dioxide Level 26 mmol/L 25 mmol/L Anion Gap 10 11 Blood Urea Nitrogen 57 mg/dL 54 mg/dL Creatinine 4.4 mg/dL 3.7 mg/dL Estimated GFR (Cockcroft-Gault) 9.5 11.6 Glucose Level 133 mg/dL 121 mg/dL Calcium Level 8.3 mg/dL 8.1 mg/dL Lactic Acid Level 0.9 mmol/L PE: GEN: NAD LUNGS: CTAB HEART: RRR ABD: NABS, soft, non-tender, LLQ ostomy w/ mix of watery brown and mushy/semi- formed stool NEURO/PSYCH: pleasantly confused A/P: AMS, hypotension, PANCHITO, hyperkalemia S/p subtotal colectomy w/ end ileostomy, high ostomy output ?dysphagia ?abd pain -- Ostomy output has slowed today - ?add Colestipol Await [employer] eval and palliative care discussion. Will review w/ Dr. Cabrera. ONEL BOB Nov 02, 2017 15:17
[2017-11-02] MEDS ORDERED: LACTOBACILLUS RHAMNOSUS GG 1 CAPSULE. PO SCH (21:00)
[2017-11-03] VITALS (20 sets, daily range): BP systolic 99–179; BP diastolic 45–82
[2017-11-03] MEDS: cefTRIAXone IV Push 1 GM VIAL. IVP SCH ×2 (00:44→23:49)
[2017-11-03] MEDS: IV NORMAL SALINE 1000ML BAG 1,000 ML IV SCH (02:46)
[2017-11-03 05:30] LABS: CALCIUM 7.9 mg/dL (8.5-10.1); CREATININE 1.6 mg/dL (0.6-1.0); GFR 30.6; MAGNESIUM 1.6 mg/dL (1.8-2.4); POTASSIUM 4.1 mmol/L (3.5-5.1)
--- NOTE | 2017-11-03 07:59 | PDOC ---
Infectious Disease Note Subjective: Subjective Pt is doing better this am more alert has trouble recalling details denies any complaints ROS: ROS Negative except for above. Vital Signs: Vital Signs Vital Signs Date Time Temp Pulse Resp B/P (MAP) Pulse Ox O2 Delivery O2 Flow Rate FiO2 11/03/17 07:00 73 16 128/70 (89) 96 Nasal Cannula 2.0 11/03/17 04:00 98.4 98.4 Physical Exam: PHYSICAL EXAM GENERAL: Alert, awake, confused female, lying comfortably in bed, cooperative, in no acute distress. HEENT: Normocephalic, atraumatic. Anicteric. LUNGS: Clear bilaterally. HEART: S1, S2. ABDOMEN: Soft. Ostomy in place. Incision well healed. EXTREMITIES: No edema, no cyanosis. MUSCULOSKELETAL: No decrease in range of motion. NEUROLOGIC: Alert, awake. Left-sided weakness. DERMATOLOGIC: No generalized rash, warm, dry. Medications: Inpatient Meds: Current Medications Medications (Trade) Dose Ordered Sig/Heather Start Time Stop Time Status Last Admin Dose Admin Ceftriaxone Sodium 1 gm/ Dextrose 50 ml @ 100 mls/hr Q24H 11/01/17 23:45 UNV Ceftriaxone Sodium (Rocephin) 1 gm Q24H 11/02/17 00:00 11/03/17 00:44 1 GM Dopamine HCl/ Dextrose 250 ml @ 0 mls/hr CONT PRN 11/01/17 22:45 11/02/17 16:54 11.694 MLS/HR Lactobacillus Rhamnosus (Culturelle) 1 cap BID 11/02/17 21:00 Cancel Ondansetron HCl (Zofran) 4 mg PRN Q4HRS PRN 11/01/17 22:45 11/01/17 23:42 4 MG Sodium Chloride 500 ml @ 500 mls/hr 1X ONCE 11/02/17 03:00 11/02/17 03:59 DC 11/02/17 03:02 500 MLS/HR Labs: Lab Laboratory Tests Test 11/02/17 16:30 11/03/17 04:05 Cortisol PM Sample 17.8 ug/dL (3.1-16.7) Sodium Level 143 mmol/L (136-145) Potassium Level 4.1 mmol/L (3.5-5.1) Chloride Level 110 mmol/L (98-107) Carbon Dioxide Level 24 mmol/L (21-32) Anion Gap 9 (6-14) Blood Urea Nitrogen 35 mg/dL (7-20) Creatinine 1.6 mg/dL (0.6-1.0) Estimated GFR (Cockcroft-Gault) 30.6 Glucose Level 77 mg/dL (70-99) Calcium Level 7.9 mg/dL (8.5-10.1) Magnesium Level 1.6 mg/dL (1.8-2.4) Objective: Assessment: 1. Altered mental status, likely metabolic encephalopathy.Improving 2. Acute kidney injury, hyperkalemia.improving 3. Sepsis resolved 4. 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 5. History of atrial fibrillation, 6. hypertension, hyperlipidemia. 7. History of cerebrovascular accident. 8. Degenerative joint disease. Plan: Plan of Care 1. Continue empiric ceftriaxone. will taper soon 2. Follow up labs in a.m. 3. Continue supportive care. JEFF SMYTH MD Nov 03, 2017 07:59
--- NOTE | 2017-11-03 09:13 | PDOC ---
Subjective: Subjective: Says she feels better. Objective: Objective: Reviewed w/ RN - increased ostomy output overnight (750cc), tolerating full liquids (no dentures here), plans to transfer out of ICU. Vital Signs: Vital Signs Date Time Temp Pulse Resp B/P (MAP) Pulse Ox O2 Delivery O2 Flow Rate FiO2 11/03/17 07:00 73 16 128/70 (89) 96 Nasal Cannula 2.0 11/03/17 04:00 98.4 98.4 Labs: Laboratory Tests Test 11/02/17 16:30 11/03/17 04:05 Cortisol PM Sample 17.8 ug/dL Sodium Level 143 mmol/L Potassium Level 4.1 mmol/L Chloride Level 110 mmol/L Carbon Dioxide Level 24 mmol/L Anion Gap 9 Blood Urea Nitrogen 35 mg/dL Creatinine 1.6 mg/dL Estimated GFR (Cockcroft-Gault) 30.6 Glucose Level 77 mg/dL Calcium Level 7.9 mg/dL Magnesium Level 1.6 mg/dL Imaging: [employer] Bedside Swallow Eval Bedside swallow eval completed. See full rpt in interventions section. IMPRESSIONS: Functional swallow for modified diet; will need full liquids until dentures and partials available. Anticipate advancing diet to include solids at that time. Low risk of aspiration per this assessment. RECOMMENDATIONS: Full liquids until dentures and partial available. Pt unable to masticate w/o denture. [employer] will f/u to attempt to adv diet to baseline diet of dysphagia II when dentures are available. Pt offered choice of puree vs full liquid until teeth are brought to hospital. Pt choice was full liquid. PE: GEN: NAD LUNGS: CTAB HEART: tachycardic ABD: BS+, LLQ ostomy w/ brown watery stool NEURO/PSYCH: able to tell me the date and where she's at though takes her awhile to get there A/P: AMS, hypotension, PANCHITO, hyperkalemia - better High ostomy output - increased overnight -- Will review w/ Dr. Cabrera - Colestid? Octreotide? ONEL BOB Nov 03, 2017 09:13
[2017-11-03] MEDS: MAGNESIUM OXIDE 400 MG TABLET PO SCH ×3 (09:29→21:32)
[2017-11-03] MEDS: IV DEXTROSE 5 %-0.45 % NACL 1,000 ML IV SCH ×2 (09:31→21:33)
--- NOTE | 2017-11-03 09:43 | PN ---
DATE: 11/03/2017 SUBJECTIVE: The patient is resting flat, comfortably in no apparent respiratory distress. She is more awake, a little bit more able to communicate, although she continued to have dysarthria and occasional difficulty finding words. Denied any complaint, in particular denied any abdominal pain, denied any shortness of breath. The nursing staff stated that her ileostomy output was high at 750 overnight. She did well with her swallowing evaluation; however, she was put on a full liquid diet because she does not have her dentures. Her lab work showed that her potassium has normalized and is now down from 5.7-4.1. Her serum creatinine came down from 4.4-1.6. So far, her blood cultures are negative. PHYSICAL EXAMINATION: GENERAL: When I examined her this morning, she looked well and was clearly in no apparent respiratory distress, pale, but no jaundice, cyanosis or thyromegaly. No jugular venous distention. No lower limb edema. VITAL SIGNS: Her heart rate was 73, blood pressure 128/78, temperature was 98.4, respiratory rate was 16, and oxygen saturation was 96% on 2 liters of oxygen. HEAD, EYES, EARS, NOSE AND THROAT: Showed normocephalic, atraumatic. NECK: Supple. HEART: Showed normal first and second heart sounds with no gallop, rub or murmur. CHEST: Clear to auscultation. No crepitation or rhonchi. ABDOMEN: Distended, soft with ileostomy bag in the left lower quadrant. No tenderness. No guarding or rigidity. No organomegaly. All hernial orifices intact. Bowel sounds normal. NEUROLOGIC: She was awake, alert, responding appropriately. All her cranial nerves intact. She has obviously left-sided hemiplegia with fixed flexion contracture. Her intake over the last 24 hours was 3230, output was 2850. LABORATORY DATA: This morning showed a serum sodium 143, potassium 4.1, chloride 110, bicarbonate 24, anion gap of 9, BUN is 35, creatinine 1.6, estimated GFR was 30 mL per minute. Her glucose was 77, calcium was 7.9, and magnesium was 1.6. Her morning cortisol was 21.3, which is within acceptable range. Her white cell count was 8400, hemoglobin 10.5, hematocrit 32, MCV 93, and platelet count of 260,000. Her nasal screen for MRSA by PCR was negative. Her blood cultures are so far negative. ASSESSMENT: 1. Altered mental status, resolved. 2. Acute kidney injury, improving. Her creatinine is down from 4.4-1.6. 3. Hyperkalemia, resolved. Her potassium is down from 5.7-4.1. 4. She is status post subtotal colectomy with an ileostomy and Meckel diverticulum. 5. She has multiple other medical problems including: A. Atrial fibrillation. B. Hypertension. C. Hyperlipidemia. D. Right middle cerebral artery territory infarct with left-sided hemiplegia. E. Generalized degenerative joint disease. 6. The patient is off dopamine. PLAN: The patient can be discharged to the floor if the bed is needed. We will monitor her labs again to make sure that her kidneys have normalized. However, given that this is the third time she is failing discharge home, I have consulted the palliative care team, and we have to discuss with her son again that she might require to go to a long-term care facility as she probably will not be able to go home again. CONNIE TOVAR MD DR: SOUTH/cat JOB#: [id number] / [id number]
--- NOTE | 2017-11-03 10:16 | PDOC ---
Renal-Progress Notes Subjective Notes Notes LESS CONFUSED History of Present Illness Hx of present illness BETTER Vitals Vitals Vital Signs Date Time Temp Pulse Resp B/P (MAP) Pulse Ox O2 Delivery O2 Flow Rate FiO2 11/03/17 09:00 67 16 133/69 (90) 100 Nasal Cannula 2.0 11/03/17 04:00 98.4 98.4 Weight Weight [ ] I.O. Intake and Output Intake and Output 11/03/17 07:00 Intake Total 3231.86 ml Output Total 2035 ml Balance 1196.86 ml Intake Oral 50 ml IV Total 3181.86 ml Output Urine Total 1210 ml Stool Total 825 ml Labs Labs Laboratory Tests Test 11/02/17 16:30 11/03/17 04:05 Cortisol PM Sample 17.8 ug/dL (3.1-16.7) Sodium Level 143 mmol/L (136-145) Potassium Level 4.1 mmol/L (3.5-5.1) Chloride Level 110 mmol/L (98-107) Carbon Dioxide Level 24 mmol/L (21-32) Anion Gap 9 (6-14) Blood Urea Nitrogen 35 mg/dL (7-20) Creatinine 1.6 mg/dL (0.6-1.0) Estimated GFR (Cockcroft-Gault) 30.6 Glucose Level 77 mg/dL (70-99) Calcium Level 7.9 mg/dL (8.5-10.1) Magnesium Level 1.6 mg/dL (1.8-2.4) Micro Micro Microbiology 11/01/17 Blood Culture - Preliminary, Resulted NO GROWTH AFTER 1 DAY Review of Systems Constitutional: yes: other (CONFUSED) Physical Exam General Appearance: no apparent distress Skin: warm Respiratory: decreased breath sounds Heart: S1S2 Abdomen: soft, bowel sounds present Genitourinary: bladder flat Extremities: pulses present Neurology: alert Assessment Assessment IMP PANCHITO-IMPROVING CLEARANCE HYPOTENSION DEHYDRATION LOW MAG MET ENCEPHALOPATHY PLAN CONT IVF'S REPLACE MAG OFF PRESSORS CONT SUPPORTIVE CARE BHARTI JOHNSON MD Nov 03, 2017 10:16
[2017-11-03] MEDS ORDERED: MAGNESIUM SULFATE 2GM 50 ML IV ONE (10:30)
[2017-11-03] MEDS: COLESTIPOL HCL 1 GM TABLET PO SCH ×2 (15:20→21:32)
--- NOTE | 2017-11-03 16:32 | PDOC2 ---
PALLIATIVE CARE Palliative Care Note Palliative Care Met with patient and son Akshat. Reviewed current medical condition; improved mental status, high output ileostomy/ colostomy, PANCHITO with improved creat. 1.6. BC_ Hx CVA; Patient has had several attempts to return home post therapy ---all unsuccessful. Discussed limited options for discharge. Patient would benefit from 24/7 nursing care. She states she does not want to keep returning to the hospital. "I just want to " tearful "I don't want to go to the assisted" Akshat -son concerned that she has failed several attempts at going home and does not have 24/7 care. Not a safe discharge home. Patient agrees to speaking with SW to discuss options of nursing facilities. Akshat stated they were planning to start with [facility] prior to one of the admissions. Discussed Code Status; DNR/DNI requested by patient ad family. Outside the Hospital form signed by son. Spoke with Jackelyn THOMPSON who will assist patient and son select nursing facility. Plan; Nursing FAcility per family with Hospice evaluation and treat. DNR/DNI. LEA BAEZA Nov 03, 2017 16:32
[2017-11-03] MEDS: LACTOBACILLUS RHAMNOSUS GG 1 CAPSULE. PO SCH (21:32)
[2017-11-04 03:00] VITALS: BP 131/59
[2017-11-04 05:13] LABS: CALCIUM 8.1 mg/dL (8.5-10.1); CREATININE 0.9 mg/dL (0.6-1.0); GFR 59.5; POTASSIUM 3.5 mmol/L (3.5-5.1)
[2017-11-04 07:00] VITALS: BP 121/90
[2017-11-04] MEDS: MAGNESIUM OXIDE 400 MG TABLET PO SCH ×3 (08:45→20:31)
[2017-11-04] MEDS: LACTOBACILLUS RHAMNOSUS GG 1 CAPSULE. PO SCH ×2 (08:45→20:31)
[2017-11-04] MEDS: IV DEXTROSE 5 %-0.45 % NACL 1,000 ML IV SCH ×2 (10:53→22:19)
[2017-11-04 11:00] VITALS: BP 165/67
[2017-11-04] MEDS: COLESTIPOL HCL 1 GM TABLET PO SCH ×2 (11:04→22:14)
--- NOTE | 2017-11-04 11:56 | PDOC ---
Subjective: Subjective: Doing okay, thinks her bag has been emptied a couple times. Objective: Objective: Reviewed PC note - seems plans for Hospice eval. Reviewed w/ nursing - pt does NOT want to go to a snf. Having watery ostomy output, 450cc charted. Vital Signs: Vital Signs Date Time Temp Pulse Resp B/P (MAP) Pulse Ox O2 Delivery O2 Flow Rate FiO2 11/04/17 07:00 93 121/90 (100) 90 Nasal Cannula 2.0 11/04/17 03:00 97.1 20 97.1 Labs: Laboratory Tests Test 11/04/17 03:00 11/04/17 04:20 Magnesium Level 2.1 mg/dL Sodium Level 141 mmol/L Potassium Level 3.5 mmol/L Chloride Level 107 mmol/L Carbon Dioxide Level 25 mmol/L Anion Gap 9 Blood Urea Nitrogen 23 mg/dL Creatinine 0.9 mg/dL Estimated GFR (Cockcroft-Gault) 59.5 Glucose Level 102 mg/dL Calcium Level 8.1 mg/dL PE: GEN: NAD, up to chair LUNGS: NC HEART: RRR ABD: LLQ ostomy w/ bits of brown stool NEURO/PSYCH: better A/P: High ostomy output -- Await ongoing discussion re: plans at [place]. Continue Colestid. ONEL BOB Nov 04, 2017 11:56
--- NOTE | 2017-11-04 12:03 | PN ---
DATE: 11/04/2017 INCOMPLETE DICTATION SUBJECTIVE: The patient is resting, slightly propped up in bed, in no apparent distress. She is awake, alert. Denied any complaint, except that she does not really want to go to the [facility] and would like to go home with a private caregiver for 24-hour a day, so I explained to her that she has to have discussion with her son, as she has failed discharge 3 times now and came to the hospital back about 6 times with acute kidney injury, given her high ileostomy output. OBJECTIVE: GENERAL: On examining her, she was pale, somewhat cachectic, but no jaundice, cyanosis or thyromegaly. No jugular venous distention. No lower limb edema. VITAL SIGNS: Her heart rate was 87, blood pressure was 131/59, temperature was 97, respiratory rate was 20 and oxygen saturation was 98% on 2 liters of oxygen. HEENT: Examination of the head, eyes, ears, nose and throat showed normocephalic, atraumatic. NECK: Supple. HEART: Showed normal first and second heart sounds. No gallop, rub or murmur. CHEST: Clear to auscultation. No crepitation or rhonchi. ABDOMEN: Distended, soft and nontender. No guarding or rigidity. No organomegaly. All hernial orifices intact. Bowel sounds normal. NEUROLOGIC: She is awake, alert, responding appropriately. She has left-sided hemiplegia with fixed flexion contracture of the left upper extremity. She is mostly bedbound, chair bound. Her intake over the last 24 hours was 3231, output was 2085. LABORATORY DATA: Lab work this morning showed a serum sodium 141, potassium 3.5, chloride 107, bicarbonate 25, anion gap of 9, BUN 23, creatinine 0.9, estimated GFR was 59 mL per minute, her glucose was 102 and calcium was 8.1. Magnesium 2.1. Her white cell count was 8400, hemoglobin 10.5, hematocrit 31.8, MCV 93 and platelet count of 260,000. ASSESSMENT: 1. Altered mental status, resolved. 2. Acute kidney injury, resolving. Her creatinine is down from 4.4 to 0.9. 3. Hyperkalemia, resolved. Her potassium is down to 3.5. 4. She is status post subtotal colectomy with an ileostomy and Meckel's diverticulectomy. 5. She has multiple other medical problems including: A. Atrial fibrillation, rate controlled. B. Hypertension. C. Hyperlipidemia. D. Right middle cerebral artery territory infarct with left-sided hemiplegia. E. Generalized degenerative joint disease. PLAN: The plan is to continue with the colestipol. We will discontinue the IV fluids. Continue to monitor her electrolytes and kidney function and monitor her lab work closely. We are discussing with the patient the option of discharge and obviously, she is very resistant to the idea of going to a [facility] and . DICTATION ENDS HERE. CONNIE TOVAR MD DR: SOUTH/cat JOB#: [id number] / [id number]
--- NOTE | 2017-11-04 13:13 | PDOC ---
Infectious Disease Note Subjective: Subjective pt denies any complaints eager for dc home tomorrow ROS: ROS Negative except for above. Vital Signs: Vital Signs Vital Signs Date Time Temp Pulse Resp B/P (MAP) Pulse Ox O2 Delivery O2 Flow Rate FiO2 11/04/17 08:30 Nasal Cannula 2.0 11/04/17 07:00 93 121/90 (100) 90 11/04/17 03:00 97.1 20 97.1 Physical Exam: PHYSICAL EXAM GENERAL: Alert, awake, confused female, lying comfortably in bed, cooperative, in no acute distress. HEENT: Normocephalic, atraumatic. Anicteric. LUNGS: Clear bilaterally. HEART: S1, S2. ABDOMEN: Soft. Ostomy in place. Incision well healed. EXTREMITIES: No edema, no cyanosis. MUSCULOSKELETAL: No decrease in range of motion. NEUROLOGIC: Alert, awake. Left-sided weakness. DERMATOLOGIC: No generalized rash, warm, dry. Medications: Inpatient Meds: Current Medications Medications (Trade) Dose Ordered Sig/[facility] Start Time Stop Time Status Last Admin Dose Admin Ceftriaxone Sodium 1 gm/ Dextrose 50 ml @ 100 mls/hr Q24H 11/01/17 23:45 UNV Ceftriaxone Sodium (Rocephin) 1 gm Q24H 11/02/17 00:00 11/03/17 23:49 1 GM Colestipol HCl (Colestid) 1 gm BID@10,22 11/03/17 14:30 11/04/17 11:04 1 GM Dextrose/Sodium Chloride 1,000 ml @ 75 mls/hr [id number] 11/03/17 09:00 11/04/17 10:53 75 MLS/HR Dopamine HCl/ Dextrose 250 ml @ 0 mls/hr CONT PRN 11/01/17 22:45 11/02/17 16:54 11.694 MLS/HR Lactobacillus Rhamnosus (Culturelle) 1 cap BID 11/03/17 21:00 11/04/17 08:45 1 CAP Magnesium Oxide (Magnesium Oxide) 400 mg TID 11/03/17 09:00 11/04/17 08:45 400 MG Magnesium Sulfate 50 ml @ 25 mls/hr 1X ONCE 11/03/17 10:30 11/03/17 12:29 DC 11/03/17 19:09 25 MLS/HR Ondansetron HCl (Zofran) 4 mg PRN Q4HRS PRN 11/01/17 22:45 11/01/17 23:42 4 MG Sodium Chloride 500 ml @ 500 mls/hr 1X ONCE 11/02/17 03:00 11/02/17 03:59 DC 11/02/17 03:02 500 MLS/HR Labs: Lab Laboratory Tests Test 11/04/17 03:00 11/04/17 04:20 Magnesium Level 2.1 mg/dL (1.8-2.4) Sodium Level 141 mmol/L (136-145) Potassium Level 3.5 mmol/L (3.5-5.1) Chloride Level 107 mmol/L (98-107) Carbon Dioxide Level 25 mmol/L (21-32) Anion Gap 9 (6-14) Blood Urea Nitrogen 23 mg/dL (7-20) Creatinine 0.9 mg/dL (0.6-1.0) Estimated GFR (Cockcroft-Gault) 59.5 Glucose Level 102 mg/dL (70-99) Calcium Level 8.1 mg/dL (8.5-10.1) Objective: Assessment: 1. Altered mental status, likely metabolic encephalopathy.Improving 2. Acute kidney injury, hyperkalemia.improving 3. Sepsis resolved 4. 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 5. History of atrial fibrillation, 6. hypertension, hyperlipidemia. 7. History of cerebrovascular accident. 8. Degenerative joint disease. Plan: Plan of Care 1. DC ceftriaxone 2. Follow up labs in a.m. 3. Continue supportive care. JEFF SMYTH MD Nov 04, 2017 13:13
--- NOTE | 2017-11-04 13:42 | PDOC ---
Renal-Progress Notes Subjective Notes Notes NONE History of Present Illness Hx of present illness NO CHANGE Vitals Vitals Vital Signs Date Time Temp Pulse Resp B/P (MAP) Pulse Ox O2 Delivery O2 Flow Rate FiO2 11/04/17 08:30 Nasal Cannula 2.0 11/04/17 07:00 93 121/90 (100) 90 11/04/17 03:00 97.1 20 97.1 Weight Weight [ ] I.O. Intake and Output Intake and Output 11/04/17 07:00 Intake Total 240 ml Output Total 1110 ml Balance -870 ml Intake Oral 240 ml Output Urine Total 660 ml Stool Total 450 ml Labs Labs Laboratory Tests Test 11/04/17 03:00 11/04/17 04:20 Magnesium Level 2.1 mg/dL (1.8-2.4) Sodium Level 141 mmol/L (136-145) Potassium Level 3.5 mmol/L (3.5-5.1) Chloride Level 107 mmol/L (98-107) Carbon Dioxide Level 25 mmol/L (21-32) Anion Gap 9 (6-14) Blood Urea Nitrogen 23 mg/dL (7-20) Creatinine 0.9 mg/dL (0.6-1.0) Estimated GFR (Cockcroft-Gault) 59.5 Glucose Level 102 mg/dL (70-99) Calcium Level 8.1 mg/dL (8.5-10.1) Micro Micro Microbiology 11/01/17 Blood Culture - Preliminary, Resulted NO GROWTH AFTER 2 DAYS Review of Systems Constitutional: yes: other (CONFUSED) Physical Exam General Appearance: no apparent distress Skin: warm Respiratory: decreased breath sounds Heart: S1S2 Abdomen: soft, bowel sounds present Genitourinary: bladder flat Extremities: pulses present Neurology: alert Assessment Assessment IMP PANCHITO-RESOLVED HYPOTENSION-BETTER DEHYDRATION LOW MAG-CORRECTED MET ENCEPHALOPATHY PLAN WILL SIGN OFF BHARTI JOHNSON MD Nov 04, 2017 13:42
[2017-11-04 15:00] VITALS: BP 140/64
[2017-11-04 19:00] VITALS: BP 120/58
[2017-11-04] MEDS ORDERED: traMADol 50 MG TABLET PO PRN (20:15)
[2017-11-04 23:00] VITALS: BP 157/54
[2017-11-05 03:00] VITALS: BP 134/60
[2017-11-05 07:00] VITALS: BP 141/78
[2017-11-05] MEDS: LACTOBACILLUS RHAMNOSUS GG 1 CAPSULE. PO SCH ×2 (08:48→21:04)
[2017-11-05] MEDS: COLESTIPOL HCL 1 GM TABLET PO SCH ×2 (08:48→21:04)
[2017-11-05] MEDS: MAGNESIUM OXIDE 400 MG TABLET PO SCH ×3 (08:48→21:04)
--- NOTE | 2017-11-05 09:03 | PDOC ---
Infectious Disease Note Subjective: Subjective pt denies any complaints eager for dc ROS: ROS Negative except for above. Vital Signs: Vital Signs Vital Signs Date Time Temp Pulse Resp B/P (MAP) Pulse Ox O2 Delivery O2 Flow Rate FiO2 11/05/17 03:00 97.1 89 18 134/60 (84) 93 Nasal Cannula 2.0 97.1 Physical Exam: PHYSICAL EXAM GENERAL: Alert, awake, confused female, lying comfortably in bed, cooperative, in no acute distress. HEENT: Normocephalic, atraumatic. Anicteric. LUNGS: Clear bilaterally. HEART: S1, S2. ABDOMEN: Soft. Ostomy in place. Incision well healed. EXTREMITIES: No edema, no cyanosis. MUSCULOSKELETAL: No decrease in range of motion. NEUROLOGIC: Alert, awake. Left-sided weakness. DERMATOLOGIC: No generalized rash, warm, dry. Medications: Inpatient Meds: Current Medications Medications (Trade) Dose Ordered Sig/Heather Start Time Stop Time Status Last Admin Dose Admin Ceftriaxone Sodium 1 gm/ Dextrose 50 ml @ 100 mls/hr Q24H 11/01/17 23:45 UNV Ceftriaxone Sodium (Rocephin) 1 gm Q24H 11/02/17 00:00 11/04/17 16:37 DC 11/03/17 23:49 1 GM Colestipol HCl (Colestid) 1 gm BID@10,22 11/03/17 14:30 11/05/17 08:48 1 GM Dextrose/Sodium Chloride 1,000 ml @ 75 mls/hr [id number] 11/03/17 09:00 11/05/17 09:02 DC 11/04/17 22:19 75 MLS/HR Dopamine HCl/ Dextrose 250 ml @ 0 mls/hr CONT PRN 11/01/17 22:45 11/05/17 09:02 DC 11/02/17 16:54 11.694 MLS/HR Lactobacillus Rhamnosus (Culturelle) 1 cap BID 11/03/17 21:00 11/05/17 08:48 1 CAP Magnesium Oxide (Magnesium Oxide) 400 mg TID 11/03/17 09:00 11/05/17 08:48 400 MG Magnesium Sulfate 50 ml @ 25 mls/hr 1X ONCE 11/03/17 10:30 11/03/17 12:29 DC 11/03/17 19:09 25 MLS/HR Ondansetron HCl (Zofran) 4 mg PRN Q4HRS PRN 11/01/17 22:45 11/01/17 23:42 4 MG Sodium Chloride 500 ml @ 500 mls/hr 1X ONCE 11/02/17 03:00 11/02/17 03:59 DC 11/02/17 03:02 500 MLS/HR Tramadol HCl (Ultram) 50 mg PRN Q6HRS PRN 11/04/17 20:15 11/04/17 20:31 50 MG Objective: Assessment: 1. Altered mental status, likely metabolic encephalopathy.resolved 2. Acute kidney injury, hyperkalemia.resolved 3. Sepsis resolved cult neg 4. 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 5. History of atrial fibrillation, 6. hypertension, hyperlipidemia. 7. History of cerebrovascular accident. 8. Degenerative joint disease. Plan: Plan of Care monitor off antibiotics awaiting dc today JEFF SMYTH MD Nov 05, 2017 09:03
[2017-11-05 10:08] LABS: CALCIUM 7.8 mg/dL (8.5-10.1); CREATININE 0.8 mg/dL (0.6-1.0); GFR 68.2; POTASSIUM 3.2 mmol/L (3.5-5.1)
[2017-11-05 11:00] VITALS: BP 144/77
--- NOTE | 2017-11-05 12:19 | PN ---
DATE: 11/05/2017 SUBJECTIVE: The patient is resting, slightly propped up in bed, in no apparent distress. She is awake and alert. On questioning her, she denied any complaint. The nursing staff did not voice any concerns that she had an eventful night. PHYSICAL EXAMINATION: GENERAL: When I examined her, she looked pale, but no jaundice, cyanosis, or thyromegaly. No jugular distention. No lower limb edema. VITAL SIGNS: Her heart rate was 89, blood pressure was 134/60, temperature was 97.1, respiratory rate was 18 and oxygen saturation was 93% on 2 liters of oxygen. HEAD, EYES, EARS, NOSE AND THROAT: Showed normocephalic, atraumatic. NECK: Supple. HEART: Showed normal first and second sounds. No gallop, rub or murmur. CHEST: Clear to auscultation. No crepitation or rhonchi. ABDOMEN: Distended with the ostomy in the left lower quadrant. No tenderness. No guarding or rigidity. No organomegaly. Hernial orifice is intact. Bowel sounds are normal. NEUROLOGIC: She is awake, alert, continued to have difficulty finding words, has left side hemiplegia with flexion contracture. Her intake over the last 24 hours was 240, output was 1100. LABORATORY DATA: As of yesterday, her serum sodium was 141, potassium 3.5, chloride 107, bicarbonate 25, anion gap of 9, BUN 23, creatinine 0.9, estimated GFR was 59 mL per minute, glucose was 102. Calcium was 8.1. ASSESSMENT: 1. Altered mental status, resolved. 2. Acute kidney injury, resolving, her creatinine is down from 4.4 to 0.9. 3. Hyperkalemia, resolved. Her most recent serum potassium is down to 3.5. 4. She is status post subtotal colectomy with an end-ileostomy and Meckel's diverticulectomy. 5. She has multiple other medical problems including: A. Atrial fibrillation with rate controlled. B. Hypertension. C. Hyperlipidemia. D. Right middle cerebral artery territory infarct with left side hemiplegia. E. Generalized degenerative joint disease. PLAN: To continue with colestipol. I will discontinue IV fluid. We will continue to monitor her electrolytes closely. The patient and son are still deciding whether to go home on hospice or to go to a [facility] facility. CONNIE TOVAR MD DR: SOUTH/cat JOB#: [id number] / [id number]
[2017-11-05 15:00] VITALS: BP 140/47
[2017-11-05 19:00] VITALS: BP 135/84
[2017-11-05 23:00] VITALS: BP 143/66
[2017-11-06 03:00] VITALS: BP 115/54
[2017-11-06 07:00] VITALS: BP 130/46
[2017-11-06] MEDS: MAGNESIUM OXIDE 400 MG TABLET PO SCH ×3 (08:54→21:15)
[2017-11-06] MEDS: LACTOBACILLUS RHAMNOSUS GG 1 CAPSULE. PO SCH ×2 (08:54→21:15)
[2017-11-06] MEDS: COLESTIPOL HCL 1 GM TABLET PO SCH ×2 (08:55→22:13)
[2017-11-06] MEDS ORDERED: POTASSIUM CHLORIDE 20 MEQ TABLET.ER. PO ONE (09:00)
--- NOTE | 2017-11-06 09:19 | PDOC ---
Infectious Disease Note Subjective: Subjective pt denies any complaints eager for dc ROS: ROS Negative except for above. Vital Signs: Vital Signs Vital Signs Date Time Temp Pulse Resp B/P (MAP) Pulse Ox O2 Delivery O2 Flow Rate FiO2 11/06/17 07:43 Room Air 11/06/17 03:00 98.6 94 20 115/54 (74) 95 98.6 11/05/17 15:00 2.0 Physical Exam: PHYSICAL EXAM GENERAL: Alert, awake, confused female, lying comfortably in bed, cooperative, in no acute distress. HEENT: Normocephalic, atraumatic. Anicteric. LUNGS: Clear bilaterally. HEART: S1, S2. ABDOMEN: Soft. Ostomy in place. Incision well healed. EXTREMITIES: No edema, no cyanosis. MUSCULOSKELETAL: No decrease in range of motion. NEUROLOGIC: Alert, awake. Left-sided weakness. DERMATOLOGIC: No generalized rash, warm, dry. Medications: Inpatient Meds: Current Medications Medications (Trade) Dose Ordered Sig/Heather Start Time Stop Time Status Last Admin Dose Admin Ceftriaxone Sodium 1 gm/ Dextrose 50 ml @ 100 mls/hr Q24H 11/01/17 23:45 UNV Ceftriaxone Sodium (Rocephin) 1 gm Q24H 11/02/17 00:00 11/04/17 16:37 DC 11/03/17 23:49 1 GM Colestipol HCl (Colestid) 1 gm BID@10,22 11/03/17 14:30 11/06/17 08:55 1 GM Dextrose/Sodium Chloride 1,000 ml @ 75 mls/hr [id number] 11/03/17 09:00 11/05/17 09:02 DC 11/04/17 22:19 75 MLS/HR Dopamine HCl/ Dextrose 250 ml @ 0 mls/hr CONT PRN 11/01/17 22:45 11/05/17 09:02 DC 11/02/17 16:54 11.694 MLS/HR Lactobacillus Rhamnosus (Culturelle) 1 cap BID 11/03/17 21:00 11/06/17 08:54 1 CAP Magnesium Oxide (Magnesium Oxide) 400 mg TID 11/03/17 09:00 11/06/17 08:54 400 MG Magnesium Sulfate 50 ml @ 25 mls/hr 1X ONCE 11/03/17 10:30 11/03/17 12:29 DC 11/03/17 19:09 25 MLS/HR Ondansetron HCl (Zofran) 4 mg PRN Q4HRS PRN 11/01/17 22:45 11/01/17 23:42 4 MG Potassium Chloride (Klor-Con) 40 meq 1X ONCE 11/06/17 09:00 11/06/17 09:01 DC 11/06/17 08:55 40 MEQ Sodium Chloride 500 ml @ 500 mls/hr 1X ONCE 11/02/17 03:00 11/02/17 03:59 DC 11/02/17 03:02 500 MLS/HR Tramadol HCl (Ultram) 50 mg PRN Q6HRS PRN 11/04/17 20:15 11/04/17 20:31 50 MG Labs: Lab Laboratory Tests Test 11/05/17 09:30 Sodium Level 142 mmol/L (136-145) Potassium Level 3.2 mmol/L (3.5-5.1) Chloride Level 105 mmol/L (98-107) Carbon Dioxide Level 30 mmol/L (21-32) Anion Gap 7 (6-14) Blood Urea Nitrogen 12 mg/dL (7-20) Creatinine 0.8 mg/dL (0.6-1.0) Estimated GFR (Cockcroft-Gault) 68.2 Glucose Level 106 mg/dL (70-99) Calcium Level 7.8 mg/dL (8.5-10.1) Objective: Assessment: 1. Altered mental status, likely metabolic encephalopathy.resolved 2. Acute kidney injury, hyperkalemia.resolved 3. Sepsis resolved cult neg 4. 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 5. History of atrial fibrillation, 6. hypertension, hyperlipidemia. 7. History of cerebrovascular accident. 8. Degenerative joint disease. Plan: Plan of Care monitor off antibiotics awaiting placement per JEFF Raymundo MD Nov 06, 2017 09:19
[2017-11-06 11:00] VITALS: BP 85/43
--- NOTE | 2017-11-06 11:05 | PN ---
DATE: 11/06/2017 SUBJECTIVE: The patient is resting slightly propped up, sleeping comfortably in her bed, in no apparent respiratory distress, sleepy but arousable. On questioning her, denied any complaint. Nursing staff did not voice any concern and stated that she had an uneventful night. Her son has not made up his mind yet whether to go home with hospice and private care or to [facility] where she was accepted. PHYSICAL EXAMINATION: GENERAL: When I examined her this morning, she was pale, but no jaundice, cyanosis, or thyromegaly. No jugular venous distention. No lower limb edema. VITAL SIGNS: Her heart rate was 94, blood pressure was 115/54, temperature was 98.6, respiratory rate was 20, and oxygen saturation was 95%. HEAD, EYES, EARS, NOSE AND THROAT: Showed normocephalic, atraumatic. NECK: Supple. HEART: Showed normal first and second heart sounds. No gallop, rub or murmur. CHEST: Clear to auscultation. No crepitation or rhonchi. ABDOMEN: Distended, soft with ileostomy in the left lower quadrant. No tenderness. No guarding or rigidity. No organomegaly. All hernial orifices intact. Bowel sounds normal. NEUROLOGIC: She is sleepy, but arousable. All cranial nerves intact. She moves upper extremities without difficulty. She is mostly bedbound, chair bound. INS AND OUTS: Her intake was 1000, output was 2750. LABORATORY DATA: As of yesterday, serum sodium was 142, potassium 3.2, chloride 105, bicarbonate 30, anion gap of 7, BUN 12, creatinine was 0.8, estimated GFR was 68 mL per minute, her glucose 106, calcium was 7.8. ASSESSMENT: 1. Altered mental status, resolved. 2. Acute kidney injury has resolved. Her creatinine is down from 4.4 to 0.8. 3. Hyperkalemia has resolved. In fact, the patient is hypokalemic with potassium only 3.2. 4. She is status post subtotal colectomy with an end ileostomy and Meckel diverticulectomy. 5. She has multiple other medical problems including: A. Atrial fibrillation, rate controlled. B. Hypertension. C. Hyperlipidemia. D. Right middle cerebral artery territory infarct with left side hemiplegia. E. Generalized degenerative joint disease. 6. High output ileostomy with tendency to acute kidney injury. PLAN: To continue with colestipol. I have discontinued her IV fluid. I will replenish her potassium. If she is accepted, all her paperwork as ready and she can be discharged either home with hospice or to a jail with hosp[facility]. CONNIE TOVAR MD DR: SOUTH/cat JOB#: [id number] / [id number]
[2017-11-06 15:00] VITALS: BP 170/80
[2017-11-06 19:00] VITALS: BP 147/74
[2017-11-06 23:04] VITALS: BP 142/68
[2017-11-07 03:04] VITALS: BP 161/72
[2017-11-07 07:00] VITALS: BP 183/84
[2017-11-07] MEDS: LACTOBACILLUS RHAMNOSUS GG 1 CAPSULE. PO SCH (09:00)
[2017-11-07] MEDS: MAGNESIUM OXIDE 400 MG TABLET PO SCH ×2 (09:11→14:42)
[2017-11-07] MEDS: COLESTIPOL HCL 1 GM TABLET PO SCH (09:11)
--- NOTE | 2017-11-07 09:58 | PDOC ---
Subjective: Subjective: Doesn't really know about ostomy - "I haven't looked at it today." Thinks the bag fell off over the weekend. Objective: Objective: Reviewed chart - discharge plans not finalized. Stool output in chart: 1000cc on 11/05, 200cc 11/06, 350cc today. Vital Signs: Vital Signs Date Time Temp Pulse Resp B/P (MAP) Pulse Ox O2 Delivery O2 Flow Rate FiO2 11/07/17 07:00 96.4 70 18 183/84 (117) 96 Room Air 96.4 Labs: BLOOD CULTURE Final NO GROWTH AFTER 5 DAYS PE: GEN: NAD LUNGS: CTAB HEART: RR ABD: non-tender, brown liquid in ostomy bag NEURO/PSYCH: pleasant, probably a bit confused A/P: High ostomy output - better -- Continue Colestipol BID, await discharge plans. ONEL BOB Nov 07, 2017 09:58
[2017-11-07 10:58] LABS: CALCIUM 8.6 mg/dL (8.5-10.1); GFR 52.7; POTASSIUM 4.3 mmol/L (3.5-5.1)
[2017-11-07 11:00] VITALS: BP 159/68
--- NOTE | 2017-11-07 11:11 | PN ---
DATE: 11/07/2017 SUBJECTIVE: The patient is resting slightly propped up in bed, no apparent respiratory distress. She was sleepy, but arousable. On questioning her, she denies any complaint. The nursing staff did not voice any concern. PHYSICAL EXAMINATION: GENERAL: When I examined her, she looked pale, but no jaundice, cyanosis, lymphadenopathy or thyromegaly. No jugular venous distention. No lower limb edema. VITAL SIGNS: Her heart rate was 70, blood pressure was 183/84, temperature was 96.4, respiratory rate was 18 and oxygen saturation was 96%. HEENT: Examination of the head, eyes, ears, nose and throat showed normocephalic, atraumatic. NECK: Supple. HEART: Showed normal first and second heart sounds. No gallop, rub or murmur. CHEST: Clear to auscultation. No crepitation or rhonchi. ABDOMEN: Distended, soft and nontender. No guarding or rigidity. No organomegaly. All hernial orifices intact and bowel sounds normal. NEUROLOGIC: She was sleepy, but arousable. She continued to have some expressive aphasia. She does have left-sided hemiplegia with fixed flexion contraction of her left upper extremity. She is mostly bedbound and chair bound. Her intake over the last 24 hours was incompletely recorded, output was 3450. LABORATORY DATA: Her most recent white cell count was 8400, hemoglobin 10.5, hematocrit 31.8, MCV 93 and platelet count of 260,000. Her chemistry showed a serum sodium 142, potassium 3.2, chloride 105, bicarbonate 30, anion gap of 7, BUN 12, creatinine 0.8, estimated GFR was 68 mL per minute, glucose 106 and calcium was 7.8. ASSESSMENT: 1. Altered mental status, resolved. 2. Acute kidney injury, improved. Her creatinine is down from 4.4 to 0.8. 3. Hypokalemia. It has resolved. Her most recent serum potassium is down to 3.2. 4. She is status post subtotal colectomy with end ileostomy and Meckel's diverticulectomy. 5. She has multiple other medical problems including: A. Atrial fibrillation, rate controlled. B. Hypertension. C. Hyperlipidemia. D. Right middle cerebral artery territory infarct with left-sided hemiplegia. E. Generalized degenerative joint disease. 6. High output ileostomy with tendency to acute kidney injury. PLAN: The plan is to continue with colestipol and replenish her potassium. She apparently is not a candidate to go to a swing bed and she can be discharged to [facility] or to go home with hospice and private care. CONNIE TOVAR MD DR: SOUTH/cat JOB#: [id number] / [id number]
[2017-11-07] MEDS ORDERED: COLE1TAB2 PO (15:28)
== END 2017-11-07 15:40 | DRG 871 ==
LOC: 1 WEST ICU 21:45 → 5 NORTH 11-03 18:37
PROVIDERS: ADMIT Internal Medicine; ATTEND Internal Medicine
DX: A41.9 Sepsis, unspecified organism (principal); G93.41 Metabolic encephalopathy; N17.0 Acute kidney failure with tubular necrosis; I69.354 Hemiplegia and hemiparesis following cerebral infarction affecting left non-dominant side; I95.9 Hypotension, unspecified; I48.2 Chronic atrial fibrillation; E86.0 Dehydration; E87.5 Hyperkalemia; E83.42 Hypomagnesemia; I10 Essential (primary) hypertension; M19.90 Unspecified osteoarthritis, unspecified site; E78.5 Hyperlipidemia, unspecified; M79.7 Fibromyalgia; Z51.5 Encounter for palliative care; K57.90 Diverticulosis of intestine, part unspecified, without perforation or abscess without bleeding; E87.6 Hypokalemia; Z90.710 Acquired absence of both cervix and uterus; Z93.3 Colostomy status; Z90.49 Acquired absence of other specified parts of digestive tract; Z98.41 Cataract extraction status, right eye; Z98.42 Cataract extraction status, left eye; Z88.0 Allergy status to penicillin; Z88.6 Allergy status to analgesic agent; Z88.5 Allergy status to narcotic agent; Z88.8 Allergy status to other drugs, medicaments and biological substances; Z82.49 Family history of ischemic heart disease and other diseases of the circulatory system; Z82.3 Family history of stroke; Z83.3 Family history of diabetes mellitus
CPT/HCPCS: 36415; 80048; 81001; 82533; 83605; 83735; 85025; 87040; 87641; J0696; J1265; J2405; J3475; J7030; J7040; 92526; 92610; 97535